=== PATIENT | male | born 1940 | race Caucasian/White ===

== ENCOUNTER 2017-07-19 14:05 | Inpatient (IN) | payer OTHER, MEDICARE ==
[~2017-07-19] VITALS: Ht 190.5 cm; Wt 148.8 kg
[2017-07-19 14:07] VITALS: BP_SYST 173
[2017-07-19] MEDS ORDERED: D5/0.45 NS 1,000 ML IV SCH (16:30)
[2017-07-19 16:31] LABS: BASOPHILS % (AUTO) 0.4 % (0.0-2.0); EOSINOPHILS # (AUTO) 0.1 K/uL (0.0-0.4); EOSINOPHILS % (AUTO) 1.3 % (0.0-4.0); HEMATOCRIT 38.9 % (36-54); HEMOGLOBIN 12.9 g/dL (14.0-18.0); LYMPHOCYTES # (AUTO) 0.7 K/uL (1.0-5.5); LYMPHOCYTES % (AUTO) 9.1 % (20.5-51.5); MEAN CORPUSCULAR HEMOGLOBIN 32 pg (27-31); MEAN CORPUSCULAR HGB CONC 33 % (32-36); MEAN CORPUSCULAR VOLUME 97 fL (79.0-98.0); MONOCYTES # (AUTO) 0.5 K/uL (0.0-1.0); MONOCYTES % (AUTO) 6.4 % (1.7-9.3); NEUTROPHILS # (AUTO) 6.4 K/uL (1.8-7.7); NEUTROPHILS % (AUTO) 82.8 % (40.0-70.0); PLATELET COUNT (AUTO) 186 K/uL (130-430); RED BLOOD CELL COUNT(AUTO) 4.01 MIL/uL (4.2-6.2); RED CELL DISTRIBUTION WIDTH 12.6 % (9.0-15.0); WHITE BLOOD COUNT (AUTO) 7.7 K/uL (4.8-10.8)
[2017-07-19 16:46] LABS: ANION GAP 4 (5-15); CALCIUM 9.3 mg/dL (8.4-11.0); CHLORIDE 109 mmol/L (98-107); CREATININE 1.33 mg/dL (0.55-1.30); GLUCOSE 142 mg/dL (70-99); POTASSIUM 4.7 mmol/L (3.5-5.1); SODIUM SERUM 141 mmol/L (136-145); UREA NITROGEN, BLOOD 27 mg/dL (8-21)
[2017-07-19 16:51] LABS: ALANINE AMINOTRANSFERASE 14 U/L (12-78); ALBUMIN 3.5 g/dL (3.4-4.8); ASPARTATE AMINOTRANSFERASE 20 U/L (10-37); TOTAL BILIRUBIN 0.6 mg/dL (0.0-1.0)
[2017-07-19] MEDS ORDERED: NACL 0.9% 1,000 ML IV ONE (17:00)
[2017-07-19 17:17] LABS: BILIRUBIN,URINE NEGATIVE (NEGATIVE); BLOOD, URINE NEGATIVE (NEGATIVE); CLARITY/URINE CLEAR (CLEAR); COLOR,URINE YELLOW (YELLOW); GLUCOSE,URINE NEGATIVE (NEGATIVE); KETONES,URINE NEGATIVE (NEGATIVE); LEUKOCYTE ESTERASE ,URINE NEGATIVE (NEGATIVE); NITRITE, URINE NEGATIVE (NEGATIVE); PROTEIN URINE NEGATIVE (NEGATIVE); UROBILINOGEN,URINE 0.2 (0.2-1.0)
[2017-07-19] MEDS ORDERED: SUCCINYLCHOLINE CHLORIDE 20 MG/ML(QUELICIN) IVP ONE (17:39)
[2017-07-19] MEDS ORDERED: SEVOFLURANE 15 MIN GAS INH ONE (17:39)
[2017-07-19] MEDS ORDERED: fentaNYL CITRATE/PF 100 MCG/2 ML AMP IVP ONE (17:39)
[2017-07-19] MEDS ORDERED: METOCLOPRAMIDE HCL 10 MG/2 ML VIAL IVP ONE (17:39)
[2017-07-19] MEDS ORDERED: MIDAZOLAM HCL 5 MG/5 ML VIAL IVP ONE (17:39)
[2017-07-19] MEDS ORDERED: D5LR 1,000 ML IV SCH (18:09)
[2017-07-19] MEDS ORDERED: HYDROcodone/ACETAMIN 5-325 MG TAB (NORCO/ VICODIN) PO PRN (18:15)
[2017-07-19] MEDS ORDERED: ACETAMINOPHEN 325 MG TABLET PO PRN (18:15)
[2017-07-19] MEDS ORDERED: DIPHENHYDRAMINE HCL 25 MG CAPSULE PO PRN (18:15)
[2017-07-19 21:51] VITALS: BP_SYST 137
== END 2017-07-19 22:15 | disposition home or self-care (01) | DRG 537 ==
LOC: SED 14:05 → EDBD 14:05 → MERGE 16:06 → SMU 16:06
PROVIDERS: ADMIT Family Medicine; ATTEND Family Medicine
PROC: 0SSBXZZ Reposition Left Hip Joint, External Approach (ICD-10-PCS; principal; 2017-07-19 17:00)
DX: S73.005A Unspecified dislocation of left hip, initial encounter (principal); Z68.41 Body mass index [BMI] 40.0-44.9, adult; E66.01 Morbid (severe) obesity due to excess calories
CPT/HCPCS: 36415; 71010; 73502; 76000; 80053; 81003; 85025; 93005; 96360; 96361; 99285; J0330; J2250; J2765; J3010

== ENCOUNTER 2017-11-03 22:19 | Emergency (ER) | payer OTHER, MEDICARE ==
[~2017-11-03] VITALS: Ht 190.5 cm; Wt 147.4 kg
[2017-11-03 22:28] VITALS: BP_SYST 111
[2017-11-03] MEDS ORDERED: NACL 0.9% 1,000 ML IV ONE (23:35)
[2017-11-03] MEDS ORDERED: DIPHENHYDRAMINE INJ 50 MG/ML VIAL IVP ONE (23:45)
[2017-11-03] MEDS ORDERED: HYDROmorphone 1 MG INJ. 1 MG/ML AMPUL IVP ONE (23:45)
[2017-11-04 00:11] LABS: BASOPHILS # (AUTO) 0.5 K/uL (0.0-0.2); BASOPHILS % (AUTO) 3.8 % (0.0-2.0); EOSINOPHILS # (AUTO) 0.1 K/uL (0.0-0.4); HEMATOCRIT 41.7 % (36-54); HEMOGLOBIN 13.8 g/dL (14.0-18.0); LYMPHOCYTES # (AUTO) 0.7 K/uL (1.0-5.5); LYMPHOCYTES % (AUTO) 5.2 % (20.5-51.5); MEAN CORPUSCULAR HEMOGLOBIN 32 pg (27-31); MEAN CORPUSCULAR HGB CONC 33 % (32-36); MEAN CORPUSCULAR VOLUME 96 fL (79.0-98.0); MONOCYTES % (AUTO) 7.1 % (1.7-9.3); NEUTROPHILS # (AUTO) 11.8 K/uL (1.8-7.7); NEUTROPHILS % (AUTO) 82.9 % (40.0-70.0); PLATELET COUNT (AUTO) 197 K/uL (130-430); RED BLOOD CELL COUNT(AUTO) 4.36 MIL/uL (4.2-6.2); RED CELL DISTRIBUTION WIDTH 12.7 % (9.0-15.0); WHITE BLOOD COUNT (AUTO) 14.1 K/uL (4.8-10.8)
[2017-11-04] MEDS ORDERED: HYDROmorphone 2 MG/ML VIAL ONE (00:12)
[2017-11-04 00:20] LABS: ANION GAP 10 (5-15); CALCIUM 9.2 mg/dL (8.4-11.0); CHLORIDE 97 mmol/L (98-107); CREATININE 2.06 mg/dL (0.55-1.30); GLUCOSE 156 mg/dL (70-99); POTASSIUM 4.7 mmol/L (3.5-5.1); SODIUM SERUM 134 mmol/L (136-145); UREA NITROGEN, BLOOD 29 mg/dL (8-21)
[2017-11-04 01:07] LABS: BILIRUBIN,URINE NEGATIVE (NEGATIVE); BLOOD, URINE 3+ (NEGATIVE); CLARITY/URINE CLEAR (CLEAR); COLOR,URINE YELLOW (YELLOW); GLUCOSE,URINE NEGATIVE (NEGATIVE); KETONES,URINE TRACE (NEGATIVE); LEUKOCYTE ESTERASE ,URINE NEGATIVE (NEGATIVE); NITRITE, URINE NEGATIVE (NEGATIVE); PH,URINE 5.5 (5.0-8.0); PROTEIN URINE NEGATIVE (NEGATIVE); UROBILINOGEN,URINE 0.2 (0.2-1.0)
[2017-11-04 01:08] LABS: BACTERIA,URINE FEW /HPF (None Seen); RBC,URINE >100 /HPF (0-3); WBC,URINE 0-3 /HPF (0-3)
[2017-11-04 01:50] VITALS: BP_SYST 111
== END 2017-11-04 01:50 | disposition home or self-care (01) ==
LOC: SED 22:19
DX: N20.1 Calculus of ureter (principal); K81.9 Cholecystitis, unspecified; E11.9 Type 2 diabetes mellitus without complications; Z91.010 Allergy to peanuts
CPT/HCPCS: 36415; 74176; 80048; 81000; 85025; 96361; 96374; 96375; 99285; J1170; J1200

== ENCOUNTER 2018-05-06 16:10 | Inpatient (IN) | payer OTHER, MEDICARE ==
[~2018-05-06] VITALS: Ht 190.5 cm; Wt 161.0 kg
[2018-05-06 16:22] VITALS: BP_SYST 105
[2018-05-06 17:18] LABS: BASOPHILS % (AUTO) 0.4 % (0.0-2.0); EOSINOPHILS # (AUTO) 0.1 K/uL (0.0-0.4); EOSINOPHILS % (AUTO) 1.7 % (0.0-4.0); HEMATOCRIT 35.1 % (36-54); LYMPHOCYTES # (AUTO) 0.8 K/uL (1.0-5.5); LYMPHOCYTES % (AUTO) 11.1 % (20.5-51.5); MEAN CORPUSCULAR HEMOGLOBIN 33 pg (27-31); MEAN CORPUSCULAR HGB CONC 34 % (32-36); MEAN CORPUSCULAR VOLUME 95 fL (79.0-98.0); MONOCYTES # (AUTO) 0.5 K/uL (0.0-1.0); MONOCYTES % (AUTO) 7.3 % (1.7-9.3); NEUTROPHILS # (AUTO) 5.7 K/uL (1.8-7.7); NEUTROPHILS % (AUTO) 79.5 % (40.0-70.0); PLATELET COUNT (AUTO) 171 K/uL (130-430); RED BLOOD CELL COUNT(AUTO) 3.69 MIL/uL (4.2-6.2); RED CELL DISTRIBUTION WIDTH 14.7 % (9.0-15.0); WHITE BLOOD COUNT (AUTO) 7.1 K/uL (4.8-10.8)
[2018-05-06 17:31] LABS: ANION GAP 9 (5-15); CALCIUM 8.8 mg/dL (8.4-11.0); CHLORIDE 108 mmol/L (98-107); CREATININE 1.44 mg/dL (0.55-1.30); GLUCOSE 230 mg/dL (70-99); POTASSIUM 4.3 mmol/L (3.5-5.1); SODIUM SERUM 142 mmol/L (136-145); UREA NITROGEN, BLOOD 28 mg/dL (8-21)
[2018-05-06 17:36] LABS: ALANINE AMINOTRANSFERASE 14 U/L (12-78); ASPARTATE AMINOTRANSFERASE 14 U/L (10-37); TOTAL BILIRUBIN 0.5 mg/dL (0.0-1.0)
[2018-05-06 17:46] LABS: INR 1.1 (0.80-1.20); PROTHROMBIN TIME 11.2 SECS (9.5-12.5)
[2018-05-06] MEDS ORDERED: NS 500 ML IV ONE (18:00)
[2018-05-06] MEDS ORDERED: VANCOMYCIN HCL 1,000 MG in D5W 250 ML IV ONE (18:15)
[2018-05-06] MEDS ORDERED: PIPERACILLIN/TAZO 3.38 GM in D5W 50 ML IV ONE (18:15)
[2018-05-06] MEDS ORDERED: FOLI-59 PO (18:25)
[2018-05-06] MEDS ORDERED: LIRA0.6P2 SQ (18:25)
[2018-05-06] MEDS ORDERED: GABA-529 PO (18:25)
[2018-05-06] MEDS ORDERED: GLIM4TAB PO (18:25)
[2018-05-06] MEDS ORDERED: PIPERACILLIN/TAZOBACTAM 3.375 GM/VIAL (ZOSYN) IV ONE (18:27)
[2018-05-06] MEDS ORDERED: VANCOMYCIN HCL 1000 MG/VIAL IV ONE (18:27)
[2018-05-06] MEDS ORDERED: INSULIN ASPART 100 UNITS/ML, 10 ML VIAL (NovoLOG) SUBCUT PRN (18:30)
[2018-05-06 19:30] VITALS: BP_SYST 169
[2018-05-06 19:40] VITALS: BP_SYST 143
[2018-05-06] MEDS ORDERED: ZOLPIDEM TARTRATE 5 MG TABLET PO PRN (22:30)
[2018-05-06] MEDS ORDERED: ACETAMINOPHEN 325 MG TABLET PO PRN (22:30)
[2018-05-06] MEDS ORDERED: HYDROcodone/ACETAMIN 5-325 MG TAB (NORCO/ VICODIN) PO PRN (22:30)
[2018-05-06] MEDS ORDERED: HEPARIN SODIUM,PORCINE 5000 UNITS/ML VIAL ONE (22:52)
[2018-05-06] MEDS: NACL 0.9% 1,000 ML IV SCH (22:57)
[2018-05-06] MEDS: HEPARIN SODIUM,PORCINE 5000 UNITS/ML VIAL SUBCUT SCH (22:59)
[2018-05-07 00:30] VITALS: BP_SYST 165
[2018-05-07] MEDS ORDERED: AMPICILLIN SODIUM/SULBACTAM NA 3 GM VIAL ONE (06:20)
[2018-05-07] MEDS: AMPICILLIN SODIUM/SULBACTAM NA 3 GM in NS 100 ML IV SCH ×3 (06:25→21:30)
[2018-05-07 06:59] LABS: BASOPHILS % (AUTO) 0.4 % (0.0-2.0); EOSINOPHILS # (AUTO) 0.3 K/uL (0.0-0.4); EOSINOPHILS % (AUTO) 3.5 % (0.0-4.0); HEMATOCRIT 32.6 % (36-54); LYMPHOCYTES % (AUTO) 13.7 % (20.5-51.5); MEAN CORPUSCULAR HEMOGLOBIN 32 pg (27-31); MEAN CORPUSCULAR HGB CONC 34 % (32-36); MEAN CORPUSCULAR VOLUME 95 fL (79.0-98.0); MONOCYTES # (AUTO) 0.6 K/uL (0.0-1.0); MONOCYTES % (AUTO) 7.9 % (1.7-9.3); NEUTROPHILS # (AUTO) 5.6 K/uL (1.8-7.7); NEUTROPHILS % (AUTO) 74.5 % (40.0-70.0); PLATELET COUNT (AUTO) 159 K/uL (130-430); RED BLOOD CELL COUNT(AUTO) 3.45 MIL/uL (4.2-6.2); WHITE BLOOD COUNT (AUTO) 7.5 K/uL (4.8-10.8)
[2018-05-07 07:25] LABS: ANION GAP 9 (5-15); CALCIUM 8.2 mg/dL (8.4-11.0); CHLORIDE 109 mmol/L (98-107); CREATININE 1.22 mg/dL (0.55-1.30); GLUCOSE 128 mg/dL (70-99); SODIUM SERUM 142 mmol/L (136-145); UREA NITROGEN, BLOOD 24 mg/dL (8-21)
[2018-05-07 08:01] LABS: ALANINE AMINOTRANSFERASE 11 U/L (12-78); ALBUMIN 2.7 g/dL (3.4-4.8); ASPARTATE AMINOTRANSFERASE 16 U/L (10-37); THYROID STIMULATING HORMONE 3.88 uIu/mL (0.36-3.74); TOTAL BILIRUBIN 0.5 mg/dL (0.0-1.0)
[2018-05-07 08:10] VITALS: BP_SYST 149
[2018-05-07] MEDS: FAMOTIDINE 20 MG TABLET PO SCH (09:49)
[2018-05-07] MEDS: GABAPENTIN 100 MG CAPSULE PO SCH (09:49)
[2018-05-07] MEDS: HEPARIN SODIUM,PORCINE 5000 UNITS/ML VIAL SUBCUT SCH ×2 (09:50→20:39)
[2018-05-07] MEDS: NACL 0.9% 1,000 ML IV SCH (09:54)
[2018-05-07] MEDS: INSULIN ASPART 100 UNITS/ML, 10 ML VIAL (NovoLOG) SUBCUT PRN (11:49)
[2018-05-07 12:00] VITALS: BP_SYST 187
[2018-05-07] MEDS ORDERED: FUROSEMIDE 40 MG/4 ML VIAL IVP ONE (12:30)
[2018-05-07 16:00] VITALS: BP_SYST 172
[2018-05-07] MEDS ORDERED: cloNIDine HCL 0.1 MG TABLET PO PRN (17:45)
[2018-05-07 20:00] VITALS: BP_SYST 155
[2018-05-07] MEDS: CARVEDILOL 6.25 MG TABLET (COREG) PO SCH (20:37)
[2018-05-07] MEDS: LINEZOLID 600 MG TABLET PO SCH (20:37)
[2018-05-07] MEDS: GLIMEPIRIDE 2 MG TABLET PO SCH (20:38)
[2018-05-08 00:01] VITALS: BP_SYST 136
[2018-05-08] MEDS: AMPICILLIN SODIUM/SULBACTAM NA 3 GM in NS 100 ML IV SCH ×3 (06:12→21:34)
[2018-05-08 07:03] LABS: ANION GAP 6 (5-15); CALCIUM 8.7 mg/dL (8.4-11.0); CHLORIDE 107 mmol/L (98-107); CREATININE 1.34 mg/dL (0.55-1.30); GLUCOSE 134 mg/dL (70-99); POTASSIUM 5.1 mmol/L (3.5-5.1); SODIUM SERUM 142 mmol/L (136-145); UREA NITROGEN, BLOOD 23 mg/dL (8-21)
[2018-05-08 08:27] VITALS: BP_SYST 148
[2018-05-08] MEDS ORDERED: FUROSEMIDE 40 MG/4 ML VIAL IVP SCH (09:00)
[2018-05-08] MEDS: HEPARIN SODIUM,PORCINE 5000 UNITS/ML VIAL SUBCUT SCH ×2 (09:26→20:39)
[2018-05-08] MEDS: GABAPENTIN 100 MG CAPSULE PO SCH (09:27)
[2018-05-08] MEDS: LINEZOLID 600 MG TABLET PO SCH ×2 (09:27→20:34)
[2018-05-08] MEDS: FAMOTIDINE 20 MG TABLET PO SCH (09:27)
[2018-05-08] MEDS: CARVEDILOL 6.25 MG TABLET (COREG) PO SCH ×2 (09:28→20:34)
[2018-05-08] MEDS: INSULIN ASPART 100 UNITS/ML, 10 ML VIAL (NovoLOG) SUBCUT PRN (11:24)
[2018-05-08 12:16] VITALS: BP_SYST 150
[2018-05-08 16:20] VITALS: BP_SYST 147
[2018-05-08] MEDS: GLIMEPIRIDE 2 MG TABLET PO SCH (20:33)
== END 2018-05-08 22:44 | disposition left against medical advice (07) | DRG 603 ==
LOC: SED 16:10 → SMU 18:16
PROVIDERS: ADMIT Internal Medicine; ATTEND Internal Medicine
DX: L03.115 Cellulitis of right lower limb (principal); Z68.41 Body mass index [BMI] 40.0-44.9, adult; L03.116 Cellulitis of left lower limb; I89.0 Lymphedema, not elsewhere classified; E66.01 Morbid (severe) obesity due to excess calories; Z96.643 Presence of artificial hip joint, bilateral; N18.3 Chronic kidney disease, stage 3 (moderate); E11.22 Type 2 diabetes mellitus with diabetic chronic kidney disease; Z91.010 Allergy to peanuts; Z79.899 Other long term (current) drug therapy; Z79.4 Long term (current) use of insulin
CPT/HCPCS: 36415; 71045; 80048; 80053; 82550-TC; 82962; 83605; 83735-TC; 83880; 84439; 84443-TC; 84484; 85025; 85610-TC; 85730-TC; 87040-TC; 93005; 93970; 96365; 96367; 99285; J0295; J1644; J1815; J1940; J2543; J3370; J7030; J7040

== ENCOUNTER 2022-03-03 21:41 | Emergency (ER) | payer OTHER, MEDICARE ==
[~2022-03-03] VITALS: Ht 190.5 cm; Wt 151.0 kg
[~2022-03-03 21:41] MED LIST: FOLI-59 PO; GABA-529 PO; GLIM4TAB PO; LIRA0.6P2 SQ
[2022-03-03 21:46] VITALS: BP_SYST 141
[2022-03-03] MEDS ORDERED: LIDOCAINE/EPI 1% 1:100000 20 ML VIAL INJ ONE (23:30)
[2022-03-04 00:31] LABS: BASOPHILS # (AUTO) 0.1 K/uL (0.0-0.2); BASOPHILS % (AUTO) 1.5 % (0.0-2.0); EOSINOPHILS # (AUTO) 0.2 K/uL (0.0-0.4); HEMATOCRIT 38.4 % (36-54); HEMOGLOBIN 13.1 g/dL (14.0-18.0); LYMPHOCYTES # (AUTO) 0.8 K/uL (1.0-5.5); LYMPHOCYTES % (AUTO) 8.5 % (20.5-51.5); MEAN CORPUSCULAR HEMOGLOBIN 33 pg (27-31); MEAN CORPUSCULAR HGB CONC 34 % (32-36); MEAN CORPUSCULAR VOLUME 96 fL (79.0-98.0); MONOCYTES # (AUTO) 0.4 K/uL (0.0-1.0); MONOCYTES % (AUTO) 4.4 % (1.7-9.3); NEUTROPHILS # (AUTO) 8.1 K/uL (1.8-7.7); NEUTROPHILS % (AUTO) 83.6 % (40.0-70.0); PLATELET COUNT (AUTO) 189 K/uL (130-430); RED CELL DISTRIBUTION WIDTH 13.5 % (9.0-15.0); WHITE BLOOD COUNT (AUTO) 9.7 K/uL (4.8-10.8)
[2022-03-04 00:45] LABS: ANION GAP 11 (5-15); CALCIUM 8.5 mg/dL (8.4-11.0); CHLORIDE 104 mmol/L (98-107); CREATININE 1.34 mg/dL (0.55-1.30); GLUCOSE 151 mg/dL (70-99); POTASSIUM 4.3 mmol/L (3.5-5.1); SODIUM SERUM 139 mmol/L (136-145); UREA NITROGEN, BLOOD 34 mg/dL (8-21)
[2022-03-04 00:45] LABS: BILIRUBIN,URINE NEGATIVE (NEGATIVE); BLOOD, URINE NEGATIVE (NEGATIVE); CLARITY/URINE CLEAR (CLEAR); COLOR,URINE YELLOW (YELLOW); GLUCOSE,URINE NEGATIVE (NEGATIVE); KETONES,URINE NEGATIVE (NEGATIVE); LEUKOCYTE ESTERASE ,URINE 1+ (NEGATIVE); NITRITE, URINE NEGATIVE (NEGATIVE); PH,URINE 5.5 (5.0-8.0); PROTEIN URINE NEGATIVE (NEGATIVE); UROBILINOGEN,URINE 0.2 (0.2-1.0)
[2022-03-04 00:51] LABS: ALANINE AMINOTRANSFERASE 7 U/L (12-78); ALBUMIN 3.3 g/dL (3.4-4.8); ASPARTATE AMINOTRANSFERASE 12 U/L (10-37); TOTAL BILIRUBIN 0.4 mg/dL (0.0-1.0)
[2022-03-04 01:41] LABS: BACTERIA,URINE None Seen /HPF (None Seen); MUCUS,URINE None Seen /LPF (None Seen); RBC,URINE 0-3 /HPF (0-3); WBC,URINE 0-3 /HPF (0-3)
[2022-03-04] MEDS ORDERED: SULF1TAB48 PO (01:44)
[2022-03-04 04:51] VITALS: BP_SYST 163
== END 2022-03-04 04:51 | disposition home or self-care (01) ==
LOC: SED 21:41
DX: L02.414 Cutaneous abscess of left upper limb (principal); E11.9 Type 2 diabetes mellitus without complications; Z91.010 Allergy to peanuts
CPT/HCPCS: 36415; 80053; 81000; 83605; 85025; 93005; 99284

== ENCOUNTER 2022-05-02 13:53 | Inpatient (IN) | payer OTHER, MEDICARE ==
[~2022-05-02] VITALS: Ht 188 cm; Wt 138.8 kg
[~2022-05-02 13:53] MED LIST changes: +SULF1TAB48 PO
[2022-05-02 14:00] VITALS: BP_SYST 186
--- NOTE | 2022-05-02 17:11 | NUR ---
Placed in room 08 . Placed on manager strategic alliances, blood pressure machine and pulse oximeter. To gown for exam. Side rails up. Report given to [place] Antony
--- NOTE | 2022-05-02 17:12 | NUR ---
ER Dr. Colindres at bedside examining patient.
--- NOTE | 2022-05-02 17:15 | NUR ---
Patient brought in bls complaining of right hip pain s/p unwitnessed fall from home. Patient is Covid positive. Pain 6/10. No other complaints/injuries per patient or as noted.
--- NOTE | 2022-05-02 18:14 | NUR ---
son called for update. informed still awaiting results from radiology.
--- NOTE | 2022-05-02 18:33 | NUR ---
XRAYS BEING DONE AT BEDSIDE.
[2022-05-02] MEDS ORDERED: MORPHINE 4 MG INJ. 4 MG/ML VIAL IM ONE (18:45)
--- NOTE | 2022-05-02 19:08 | NUR ---
report given to Trever for continuation of care.
[2022-05-02 19:53] LABS: BASOPHILS % (AUTO) 0.4 % (0.0-2.0); EOSINOPHILS % (AUTO) 0.2 % (0.0-4.0); HEMATOCRIT 38.1 % (36-54); LYMPHOCYTES # (AUTO) 0.5 K/uL (1.0-5.5); LYMPHOCYTES % (AUTO) 10.8 % (20.5-51.5); MEAN CORPUSCULAR HEMOGLOBIN 33 pg (27-31); MEAN CORPUSCULAR HGB CONC 34 % (32-36); MEAN CORPUSCULAR VOLUME 96 fL (79.0-98.0); MONOCYTES # (AUTO) 0.4 K/uL (0.0-1.0); MONOCYTES % (AUTO) 8.7 % (1.7-9.3); NEUTROPHILS # (AUTO) 3.8 K/uL (1.8-7.7); NEUTROPHILS % (AUTO) 79.9 % (40.0-70.0); PLATELET COUNT (AUTO) 140 K/uL (130-430); RED BLOOD CELL COUNT(AUTO) 3.97 MIL/uL (4.2-6.2); RED CELL DISTRIBUTION WIDTH 13.1 % (9.0-15.0); WHITE BLOOD COUNT (AUTO) 4.8 K/uL (4.8-10.8)
--- NOTE | 2022-05-02 19:54 | NUR ---
Pt in bed 8 at this time with NC@2 L. On monitoring tech and pulse oximetry. Normal skin color for ethnicity. Pt c/o right hip pain with noticeable internal rotation. Palpable pedal pulse bilaterally. No skin discoloration to right leg.Bed in low position. Side rails up.
[2022-05-02] MEDS ORDERED: ONDANSETRON HCL 4 MG/2 ML VIAL IVP PRN (20:00)
[2022-05-02] MEDS ORDERED: MUPIROCIN 2% TOPICAL OINTMENT 22 GM NS PRN (20:00)
[2022-05-02] MEDS ORDERED: DOCUSATE SODIUM 100 MG CAPSULE PO PRN (20:00)
[2022-05-02] MEDS ORDERED: ZOLPIDEM TARTRATE 5 MG TABLET PO PRN (20:00)
[2022-05-02] MEDS ORDERED: LORazepam 2 MG/ML VIAL IVP PRN (20:00)
[2022-05-02] MEDS ORDERED: ACETAMINOPHEN 325 MG TABLET PO PRN (20:00)
[2022-05-02] MEDS ORDERED: MORPHINE 2 MG/ML INJ. SYRINGE IVP PRN (20:00)
[2022-05-02] MEDS ORDERED: ONDANSETRON HCL 4 MG/2 ML VIAL IVP ONE (20:15)
[2022-05-02 20:32] LABS: INR 1.1 (0.80-1.20); PROTHROMBIN TIME 10.9 SECS (9.5-12.5)
--- NOTE | 2022-05-02 20:54 | NUR ---
# 22 gauge angiocath placed to left hand. Use of asceptic technique. Opsite placed over site. Blood return noted. Blood for lab drawn from site. Flushed with 10 cc of normal saline. No evidence of infiltration noted. Patient tolerated well.
--- NOTE | 2022-05-02 20:55 | NUR ---
Jayda swab walked to lab at this time
[2022-05-02 21:22] LABS: ANION GAP 11 (5-15); CALCIUM 8.4 mg/dL (8.4-11.0); CHLORIDE 103 mmol/L (98-107); CREATININE 1.31 mg/dL (0.55-1.30); GLUCOSE 131 mg/dL (70-99); POTASSIUM 3.9 mmol/L (3.5-5.1); SODIUM SERUM 137 mmol/L (136-145); UREA NITROGEN, BLOOD 21 mg/dL (8-21)
[2022-05-02 21:34] LABS: ALANINE AMINOTRANSFERASE 10 U/L (12-78); ALBUMIN 2.9 g/dL (3.4-4.8); ASPARTATE AMINOTRANSFERASE 26 U/L (10-37); TOTAL BILIRUBIN 0.5 mg/dL (0.0-1.0)
[2022-05-02] MEDS: hydrALAZINE HCL 20 MG/ML VIAL IVP PRN (22:10)
[2022-05-03] VITALS (7 sets, daily range): BP systolic 145–180
--- NOTE | 2022-05-03 | NUR ---
ADMISSION NOTES; -Pt arrived from ED dept to Rm 123-B. Admitted as medsurg dx rt hip dislocation s/p fall from home. Positive Covid, places on droplet contact isolation precaution. Pt is confused. Pt is morbid obesity. IV site of rt hand #22 patent, flushed well w/ NS, no s/s any infiltration noted. NPO status. Unable to discuss poc d/t pt is confused and no family is at bedside this time. Right f/a bruise and dry old blood stained scab, left eye with redness and swollen with scant yellow discharge, anterior rt chest dry scab, buttocks redness intact and blanchable, left arm bruise and small skin tear noted. Will order wound care consult and keeps pt cleaned and dry, turned & repositioned and q 2hrs prn. Bed alarmed, side rails x3. Pt is confused and unable to use call light for assistance. All safety measures in place. Cont to monitor pt.
--- NOTE | 2022-05-03 00:30 | NUR ---
Report to [place] Salmeron. Patient is admitted to [facility] under Dr Chacon. Patient transferred to Room 123B
--- NOTE | 2022-05-03 01:30 | NUR ---
NOTES; MADELINE-SON CALLED AND UPDATED HIS FATHER'S CONDITION AND PLAN OF CARE. -Madeline Roberts(son) stated that his dad lives with him and fell x2 ( and ) of this week. Left eye infection on 04/22 and he is on eye drop antibotic. Informed son to bring a list of his home meds, he verbalized that he will bring it in the morning. Addendum: 05/03/22 at 0450 by Lucas Bland RN CORRECTION-SON'S NAME IS CORIE PALMA-WILLA CORREA
--- NOTE | 2022-05-03 01:30 | NUR ---
CORRECTION -------SON'S NAME IS CORIE DEGROOT-WILLA CORREA
[2022-05-03] MEDS: MORPHINE 2 MG/ML INJ. SYRINGE IVP PRN ×2 (01:54→01:57)
--- NOTE | 2022-05-03 01:57 | NUR ---
NOTES; PAIN MGMT PRIOR CHANGED PT AND TAKE PHOTOS OF WOUNDS -Gave Morphine 2mg IVP prior changed pt d/t incontinent of urine and take photos of wounds for admission protocol. Now, pt is cleaned and dry. Turned & repositioned and q 2hrs prn. Call light w/in reach. Bed alarmed, side rails x3. Maintains droplet contact isolation entire time. Cont to monitor pt.
--- NOTE | 2022-05-03 04:10 | NUR ---
ROUNDS; -Pt is asleep. NO s/s any pain,sob,or any acute distress noted. Turned & repositioned and q 2hrs prn. Call light w/in reach. Bed alarmed, side rails x3. Maintains droplet contact isolation entire time. Cont to monitor pt.
[2022-05-03] MEDS: MORPHINE 4 MG INJ. 4 MG/ML VIAL IVP PRN ×3 (06:04→11:50)
--- NOTE | 2022-05-03 06:04 | NUR ---
ROUNDS; pain mgmt -Pt is resting and moaning when checked to see if pt is wet. changed pt and provided perineal care,now pt is cleaned and dry. Turned & repositioned and q 2hrs prn. Call light w/in reach. Bed alarmed, side rails x3. Maintains droplet contact isolation entire time. Cont to monitor pt.
[2022-05-03] MEDS: hydrALAZINE HCL 20 MG/ML VIAL IVP PRN ×3 (06:14→23:09)
--- NOTE | 2022-05-03 06:14 | NUR ---
NOTES;ELEVATED EP=052/111,GAVE APRESOLINE 10MG IVP WILL CONT TO MONITOR PT.
--- NOTE | 2022-05-03 06:31 | NUR ---
CLOSING NOTES; -Multiple time pt removed n/c for oxy, pt is m1bqk=65-83% r/a. No s/s any chest pain or sob,or resp distress noted. -Pt is resting in bed comfortably after Morphine given earlier. IV site of rt hand #22 patent, flushed well w/ NS, no s/s any infiltration noted. All safety measures in place. Pt's condition stable. Maintains droplet contact isolation entire shift. Will endorse to next nurse to cont care.
[2022-05-03 08:16] LABS: BASOPHILS # (AUTO) 0.1 K/uL (0.0-0.2); BASOPHILS % (AUTO) 1.1 % (0.0-2.0); EOSINOPHILS % (AUTO) 0.1 % (0.0-4.0); HEMATOCRIT 40.5 % (36-54); HEMOGLOBIN 13.9 g/dL (14.0-18.0); LYMPHOCYTES # (AUTO) 0.4 K/uL (1.0-5.5); LYMPHOCYTES % (AUTO) 5.1 % (20.5-51.5); MEAN CORPUSCULAR HEMOGLOBIN 33 pg (27-31); MEAN CORPUSCULAR HGB CONC 34 % (32-36); MEAN CORPUSCULAR VOLUME 95 fL (79.0-98.0); MONOCYTES # (AUTO) 0.6 K/uL (0.0-1.0); MONOCYTES % (AUTO) 8.1 % (1.7-9.3); NEUTROPHILS # (AUTO) 6.6 K/uL (1.8-7.7); NEUTROPHILS % (AUTO) 85.6 % (40.0-70.0); PLATELET COUNT (AUTO) 141 K/uL (130-430); RED BLOOD CELL COUNT(AUTO) 4.24 MIL/uL (4.2-6.2); RED CELL DISTRIBUTION WIDTH 13.2 % (9.0-15.0); WHITE BLOOD COUNT (AUTO) 7.7 K/uL (4.8-10.8)
[2022-05-03 08:57] LABS: ANION GAP 16 (5-15); CALCIUM 8.5 mg/dL (8.4-11.0); CHLORIDE 102 mmol/L (98-107); CREATININE 1.28 mg/dL (0.55-1.30); GLUCOSE 172 mg/dL (70-99); SODIUM SERUM 136 mmol/L (136-145); UREA NITROGEN, BLOOD 22 mg/dL (8-21)
--- NOTE | 2022-05-03 13:20 | NUR ---
NOTES: Zafar Menard paged for consult for cardiac clearance. called and gave information but wants pt. nurse to call him back for more information. nurse Slade will be inform.
[2022-05-03] MEDS: GENTAMICIN SULFATE 0.3% Non-Formulary OPHT. 5 ML DROPS OP SCH ×2 (18:29→23:15)
[2022-05-03] MEDS: NEOMYCIN/POLYMYXN B/GRAMICIDIN 10 ML OPHT. DROPS OP SCH ×2 (18:29→23:15)
[2022-05-03] MEDS: TRIAMCINOLONE ACETONIDE 0.025% 15 GM CREAM.GM. TP SCH (21:00)
[2022-05-04 00:45] VITALS: BP_SYST 180
--- NOTE | 2022-05-04 06:14 | NUR ---
pt is hard of hearing, alert x1, very sensitive to any movement, he is incontinence. Pt is also obese and has right eye infection.
[2022-05-04 06:26] LABS: BILIRUBIN,URINE NEGATIVE (NEGATIVE); BLOOD, URINE 2+ (NEGATIVE); CLARITY/URINE CLEAR (CLEAR); COLOR,URINE YELLOW (YELLOW); GLUCOSE,URINE NEGATIVE (NEGATIVE); KETONES,URINE 3+ (NEGATIVE); LEUKOCYTE ESTERASE ,URINE NEGATIVE (NEGATIVE); NITRITE, URINE NEGATIVE (NEGATIVE); PH,URINE 8.5 (5.0-8.0); PROTEIN URINE 2+ (NEGATIVE); UROBILINOGEN,URINE 0.2 (0.2-1.0)
--- NOTE | 2022-05-04 06:53 | NUR ---
RECEIVED CRITICAL LAB AT THIS TIME Keira from Lab called [place] Trujillo picked up phone call Noman unavailable at time of call Critical lab: COVID positive Notified Miguel charge nurse, then found Noman and notified him of result.
[2022-05-04 07:00] VITALS: BP_SYST 172
--- NOTE | 2022-05-04 07:09 | NUR ---
Dr. Carreno returned page and notified of positive rapid Covid test result. Surgery cancelled per Dr. Carreno. Chain Carrier and RN made aware.
[2022-05-04 07:11] LABS: BACTERIA,URINE MANY /HPF (None Seen)
[2022-05-04 07:12] LABS: YEAST,URINE Few /HPF (None Seen)
[2022-05-04] MEDS: GENTAMICIN SULFATE 0.3% Non-Formulary OPHT. 5 ML DROPS OP SCH ×5 (07:12→22:16)
[2022-05-04] MEDS: NEOMYCIN/POLYMYXN B/GRAMICIDIN 10 ML OPHT. DROPS OP SCH ×5 (07:12→22:16)
[2022-05-04 07:13] LABS: MUCUS,URINE 3+ /LPF (None Seen)
--- NOTE | 2022-05-04 07:52 | NUR ---
CONSULTATION PAGED/CALLED Reason for Consultation: [] AMS Person Who was Notified: [] DR Jose Angel VERA/DR WICK Consulting Physician: [] DR Jose Angel VERA/DR WICK Addiction Social Worker Specialty: [] NEURO Ordering Physician: [] DR AMADOR
[2022-05-04 08:00] VITALS: BP_SYST 172
[2022-05-04 08:29] LABS: ANION GAP 17 (5-15); CALCIUM 8.2 mg/dL (8.4-11.0); CHLORIDE 103 mmol/L (98-107); CREATININE 1.59 mg/dL (0.55-1.30); GLUCOSE 198 mg/dL (70-99); SODIUM SERUM 138 mmol/L (136-145); UREA NITROGEN, BLOOD 29 mg/dL (8-21)
[2022-05-04 08:38] LABS: BASOPHILS % (AUTO) 0.3 % (0.0-2.0); HEMATOCRIT 43.3 % (36-54); HEMOGLOBIN 14.5 g/dL (14.0-18.0); LYMPHOCYTES # (AUTO) 0.5 K/uL (1.0-5.5); LYMPHOCYTES % (AUTO) 3.8 % (20.5-51.5); MEAN CORPUSCULAR HEMOGLOBIN 32 pg (27-31); MEAN CORPUSCULAR HGB CONC 34 % (32-36); MEAN CORPUSCULAR VOLUME 96 fL (79.0-98.0); MONOCYTES # (AUTO) 0.8 K/uL (0.0-1.0); MONOCYTES % (AUTO) 6.2 % (1.7-9.3); NEUTROPHILS # (AUTO) 12.2 K/uL (1.8-7.7); NEUTROPHILS % (AUTO) 89.7 % (40.0-70.0); PLATELET COUNT (AUTO) 173 K/uL (130-430); RED BLOOD CELL COUNT(AUTO) 4.53 MIL/uL (4.2-6.2); RED CELL DISTRIBUTION WIDTH 13.6 % (9.0-15.0); WHITE BLOOD COUNT (AUTO) 13.5 K/uL (4.8-10.8)
[2022-05-04] MEDS: hydrALAZINE HCL 20 MG/ML VIAL IVP PRN (10:22)
[2022-05-04] MEDS: TRIAMCINOLONE ACETONIDE 0.025% 15 GM CREAM.GM. TP SCH ×2 (10:24→22:16)
[2022-05-04] MEDS ORDERED: amLODIPine BESYLATE 5 MG TABLET PO ONE (10:30)
[2022-05-04 12:00] VITALS: BP_SYST 109
[2022-05-04] MEDS: NACL 0.9% 1,000 ML IV SCH ×2 (13:25→20:30)
[2022-05-04 16:00] VITALS: BP_SYST 142
--- NOTE | 2022-05-04 18:02 | NUR ---
Patient gets combative with staff especially when repositioning/turning. Patient does not like eye drops to be put on his left eye--patient tries to cover his left eye with his hands. Attempt to explain the importance of getting eye drops for his left eye infection--patient refusing. Patient does not want to eat dinner despite being fed. will cont to monitor patient
--- NOTE | 2022-05-04 19:21 | NUR ---
END OF SHIFT REPORT GIVEN TO [place] RODRIGUEZ. THANK YOU
[2022-05-04 20:00] VITALS: BP_SYST 142
[2022-05-05] MEDS: hydrALAZINE HCL 20 MG/ML VIAL IVP PRN (02:35)
[2022-05-05] MEDS: NACL 0.9% 1,000 ML IV SCH (06:30)
[2022-05-05 06:57] LABS: BASOPHILS % (AUTO) 0.3 % (0.0-2.0); EOSINOPHILS % (AUTO) 0.4 % (0.0-4.0); HEMOGLOBIN 13.5 g/dL (14.0-18.0); LYMPHOCYTES # (AUTO) 0.5 K/uL (1.0-5.5); LYMPHOCYTES % (AUTO) 4.5 % (20.5-51.5); MEAN CORPUSCULAR HEMOGLOBIN 32 pg (27-31); MEAN CORPUSCULAR HGB CONC 34 % (32-36); MEAN CORPUSCULAR VOLUME 96 fL (79.0-98.0); MONOCYTES # (AUTO) 0.8 K/uL (0.0-1.0); MONOCYTES % (AUTO) 7.4 % (1.7-9.3); NEUTROPHILS # (AUTO) 9.6 K/uL (1.8-7.7); NEUTROPHILS % (AUTO) 87.4 % (40.0-70.0); PLATELET COUNT (AUTO) 149 K/uL (130-430); RED BLOOD CELL COUNT(AUTO) 4.19 MIL/uL (4.2-6.2); RED CELL DISTRIBUTION WIDTH 14.2 % (9.0-15.0)
[2022-05-05 07:00] VITALS: BP_SYST 153
[2022-05-05] MEDS: NEOMYCIN/POLYMYXN B/GRAMICIDIN 10 ML OPHT. DROPS OP SCH ×5 (07:11→21:21)
[2022-05-05] MEDS: GENTAMICIN SULFATE 0.3% Non-Formulary OPHT. 5 ML DROPS OP SCH ×5 (07:11→21:21)
[2022-05-05 07:53] LABS: ANION GAP 16 (5-15); CALCIUM 8.3 mg/dL (8.4-11.0); CHLORIDE 113 mmol/L (98-107); CREATININE 1.39 mg/dL (0.55-1.30); GLUCOSE 211 mg/dL (70-99); POTASSIUM 3.9 mmol/L (3.5-5.1); SODIUM SERUM 148 mmol/L (136-145); UREA NITROGEN, BLOOD 32 mg/dL (8-21)
[2022-05-05 08:00] VITALS: BP_SYST 153
[2022-05-05] MEDS ORDERED: amLODIPine BESYLATE 5 MG TABLET PO SCH (09:00)
[2022-05-05] MEDS: amLODIPine BESYLATE 5 MG TABLET PO SCH (09:14)
[2022-05-05] MEDS: TRIAMCINOLONE ACETONIDE 0.025% 15 GM CREAM.GM. TP SCH ×2 (09:15→21:21)
--- NOTE | 2022-05-05 11:19 | NUR ---
Dietitian Recommendations - continue cardiac diet or consider liberalizing diet to promote PO intake - consider providing Ensure Enlive BID to supplement diet Please refer to nutrition assessment for details. LORNA BELLA
[2022-05-05 11:47] VITALS: BP_SYST 157
[2022-05-05 12:05] VITALS: BP_SYST 157
[2022-05-05] MEDS: 0.45% NACL 1,000 ML IV SCH (15:20)
[2022-05-05] MEDS: MORPHINE 2 MG/ML INJ. SYRINGE IVP PRN (15:20)
[2022-05-05 16:00] VITALS: BP_SYST 134
--- NOTE | 2022-05-05 19:08 | NUR ---
END OF SHIFT REPORT GIVEN TO [place] KWOK. THANK YOU
--- NOTE | 2022-05-05 19:30 | NUR ---
Opening note Received report from day shift. Pt is calm and awake resting in bed, eyes open. Breathing even and unlabored on RA. IV site intact and patent with fluids running at ordered rate. Fall and safety precautions in place with bed in lowest position, bed alarm on, and call light within reach.
[2022-05-05 20:00] VITALS: BP_SYST 117
[2022-05-06] VITALS: BP_SYST 143
--- NOTE | 2022-05-06 00:15 | NUR ---
Rounds Pt awake lying in bed, eyes open. Breathing even and unlabored. No s/s of acute distress. Fall and safety checks in place
[2022-05-06] MEDS: 0.45% NACL 1,000 ML IV SCH ×2 (02:43→15:10)
[2022-05-06] MEDS: MORPHINE 2 MG/ML INJ. SYRINGE IVP PRN (02:51)
[2022-05-06] MEDS: MORPHINE 4 MG INJ. 4 MG/ML VIAL IVP PRN ×3 (06:03→22:10)
[2022-05-06] MEDS: GENTAMICIN SULFATE 0.3% Non-Formulary OPHT. 5 ML DROPS OP SCH ×5 (06:03→22:01)
[2022-05-06] MEDS: NEOMYCIN/POLYMYXN B/GRAMICIDIN 10 ML OPHT. DROPS OP SCH ×5 (06:03→22:01)
--- NOTE | 2022-05-06 07:05 | NUR ---
Closing note Pt awake in bed. Breathing even and unlabored. No s/s of respiratory distress. IV site intact and patent with fluids running at ordered rate. Fall and safety precautions in place with bed in lowest position, bed alarm on, and call light within reach. All needs met throughout shift
--- NOTE | 2022-05-06 07:55 | NUR ---
RECEIVED PATIENT FROM PM NURSE, RESTING COMFORTABLY IN BED, NO S/SX OF DISTRESS OR DISCOMFORT OBSERVED, WILL ASSUME ALL CARE OF PATIENT
[2022-05-06] MEDS: amLODIPine BESYLATE 5 MG TABLET PO SCH (09:40)
[2022-05-06] MEDS: TRIAMCINOLONE ACETONIDE 0.025% 15 GM CREAM.GM. TP SCH ×2 (09:41→22:01)
[2022-05-06] MEDS: MUPIROCIN 2% TOPICAL OINTMENT 22 GM TP SCH ×2 (09:41→22:00)
--- NOTE | 2022-05-06 11:00 | NUR ---
PATIENT C/O 05/15 PAIN IN HIP, 4MG IV MORPHINE ADMINISTERED PER EMAR
[2022-05-06 12:00] VITALS: BP_SYST 140
[2022-05-06 15:00] VITALS: BP_SYST 132
[2022-05-06 20:00] VITALS: BP_SYST 138; BP_SYST 148
[2022-05-07] VITALS: BP_SYST 136
[2022-05-07 04:00] VITALS: BP_SYST 140
[2022-05-07] MEDS: 0.45% NACL 1,000 ML IV SCH ×2 (04:00→18:37)
[2022-05-07] MEDS: NEOMYCIN/POLYMYXN B/GRAMICIDIN 10 ML OPHT. DROPS OP SCH ×4 (06:26→21:03)
[2022-05-07] MEDS: GENTAMICIN SULFATE 0.3% Non-Formulary OPHT. 5 ML DROPS OP SCH ×4 (06:26→21:03)
[2022-05-07 07:05] LABS: BASOPHILS % (AUTO) 0.4 % (0.0-2.0); EOSINOPHILS # (AUTO) 0.3 K/uL (0.0-0.4); EOSINOPHILS % (AUTO) 3.2 % (0.0-4.0); HEMATOCRIT 36.6 % (36-54); HEMOGLOBIN 12.6 g/dL (14.0-18.0); LYMPHOCYTES # (AUTO) 0.5 K/uL (1.0-5.5); MEAN CORPUSCULAR HEMOGLOBIN 33 pg (27-31); MEAN CORPUSCULAR HGB CONC 34 % (32-36); MEAN CORPUSCULAR VOLUME 95 fL (79.0-98.0); MONOCYTES # (AUTO) 0.7 K/uL (0.0-1.0); MONOCYTES % (AUTO) 8.4 % (1.7-9.3); NEUTROPHILS # (AUTO) 6.7 K/uL (1.8-7.7); PLATELET COUNT (AUTO) 173 K/uL (130-430); RED BLOOD CELL COUNT(AUTO) 3.83 MIL/uL (4.2-6.2); RED CELL DISTRIBUTION WIDTH 13.6 % (9.0-15.0); WHITE BLOOD COUNT (AUTO) 8.2 K/uL (4.8-10.8)
--- NOTE | 2022-05-07 07:30 | NUR ---
OPENING NOTES: 0730AM: PATIENT IS RESTING IN BED QUIETLY. A/A/0x3 PERSON, PLACE, AND EVENT W/ EPISODE OF FORGETFULNESS. ABLE TO MAKE NEEDS KNOWN.. EXPLAINED POC TO PATIENT AND HE VERBALIZED UNDERSTANDING. NO DISTRESS OR PAIN NOTED AT THIS TIME. CALL LIGHT WITH REACH. STABLE CONDITION AT THIS TIME.
[2022-05-07 07:38] LABS: ANION GAP 10 (5-15); CALCIUM 8.3 mg/dL (8.4-11.0); CHLORIDE 111 mmol/L (98-107); CREATININE 1.42 mg/dL (0.55-1.30); GLUCOSE 266 mg/dL (70-99); POTASSIUM 3.9 mmol/L (3.5-5.1); SODIUM SERUM 146 mmol/L (136-145); UREA NITROGEN, BLOOD 36 mg/dL (8-21)
[2022-05-07 08:00] VITALS: BP_SYST 142
[2022-05-07] MEDS: amLODIPine BESYLATE 5 MG TABLET PO SCH (10:35)
[2022-05-07] MEDS: TRIAMCINOLONE ACETONIDE 0.025% 15 GM CREAM.GM. TP SCH ×2 (10:35→20:26)
[2022-05-07] MEDS: HYDROcodone/ACETAMIN 5-325 MG TAB (NORCO/ VICODIN) PO PRN (10:38)
[2022-05-07] MEDS: MUPIROCIN 2% TOPICAL OINTMENT 22 GM TP SCH ×2 (11:29→20:26)
[2022-05-07 16:00] VITALS: BP_SYST 154
--- NOTE | 2022-05-07 18:45 | NUR ---
CLOSING NOTES: PATIENT IS RESTING IN BED QUIETLY, WATCHING TV. NESS. NO DISTRESS OR PAIN NOTED AT THIS TIME. CALL LIGHT WITH REACH. STABLE CONDITION AT THIS TIME. ALL NEEDS MET.
[2022-05-07 20:00] VITALS: BP_SYST 145
[2022-05-07 21:36] VITALS: BP_SYST 145
[2022-05-08] VITALS: BP_SYST 148
[2022-05-08] MEDS: MORPHINE 4 MG INJ. 4 MG/ML VIAL IVP PRN ×4 (00:05→18:26)
[2022-05-08 04:00] VITALS: BP_SYST 146
[2022-05-08] MEDS: GENTAMICIN SULFATE 0.3% Non-Formulary OPHT. 5 ML DROPS OP SCH ×5 (06:00→22:38)
[2022-05-08] MEDS: NEOMYCIN/POLYMYXN B/GRAMICIDIN 10 ML OPHT. DROPS OP SCH ×5 (06:00→22:39)
[2022-05-08] MEDS: 0.45% NACL 1,000 ML IV SCH ×2 (06:00→13:12)
--- NOTE | 2022-05-08 07:30 | NUR ---
OPENING NOTES: PATIENT IS RESTING IN BED QUIETLY. A/A/0x3 PERSON, PLACE, AND EVENT W/ EPISODE OF FORGETFULNESS. ABLE TO MAKE NEEDS KNOWN.. EXPLAINED POC TO PATIENT AND HE VERBALIZED UNDERSTANDING. NO DISTRESS OR PAIN NOTED AT THIS TIME. CALL LIGHT AND PERSONAL ITEMS WITHIN REACH. STABLE CONDITION AT THIS TIME.
[2022-05-08 07:58] LABS: BASOPHILS % (AUTO) 0.3 % (0.0-2.0); EOSINOPHILS # (AUTO) 0.5 K/uL (0.0-0.4); EOSINOPHILS % (AUTO) 5.8 % (0.0-4.0); HEMATOCRIT 35.6 % (36-54); LYMPHOCYTES # (AUTO) 0.7 K/uL (1.0-5.5); LYMPHOCYTES % (AUTO) 8.8 % (20.5-51.5); MEAN CORPUSCULAR HEMOGLOBIN 32 pg (27-31); MEAN CORPUSCULAR HGB CONC 34 % (32-36); MEAN CORPUSCULAR VOLUME 95 fL (79.0-98.0); MONOCYTES # (AUTO) 0.8 K/uL (0.0-1.0); MONOCYTES % (AUTO) 9.8 % (1.7-9.3); NEUTROPHILS # (AUTO) 6.1 K/uL (1.8-7.7); NEUTROPHILS % (AUTO) 75.3 % (40.0-70.0); PLATELET COUNT (AUTO) 170 K/uL (130-430); RED BLOOD CELL COUNT(AUTO) 3.74 MIL/uL (4.2-6.2); RED CELL DISTRIBUTION WIDTH 13.5 % (9.0-15.0); WHITE BLOOD COUNT (AUTO) 8.2 K/uL (4.8-10.8)
[2022-05-08 08:34] LABS: ANION GAP 9 (5-15); CHLORIDE 110 mmol/L (98-107); CREATININE 1.31 mg/dL (0.55-1.30); GLUCOSE 299 mg/dL (70-99); POTASSIUM 3.9 mmol/L (3.5-5.1); SODIUM SERUM 143 mmol/L (136-145); UREA NITROGEN, BLOOD 33 mg/dL (8-21)
[2022-05-08 08:49] VITALS: BP_SYST 181
[2022-05-08] MEDS: amLODIPine BESYLATE 5 MG TABLET PO SCH (08:56)
[2022-05-08] MEDS: HYDROcodone/ACETAMIN 5-325 MG TAB (NORCO/ VICODIN) PO PRN ×3 (08:56→20:52)
[2022-05-08] MEDS: TRIAMCINOLONE ACETONIDE 0.025% 15 GM CREAM.GM. TP SCH ×2 (08:57→20:52)
[2022-05-08] MEDS: MUPIROCIN 2% TOPICAL OINTMENT 22 GM TP SCH ×2 (08:57→20:53)
[2022-05-08 10:09] VITALS: BP_SYST 140
--- NOTE | 2022-05-08 12:43 | NUR ---
CONSULT FOR DR CARDENAS: SPOKE WITH DR. CARDENAS OVER THE PHONE REGARDING CONSULT. MD WILL BE HERE TONIGHT TO SEE THE PATIENT. PATIENT WILL BE NPO AFTER MIDNIGHT DUE TO SURGERY IN AM 05/09/22.
--- NOTE | 2022-05-08 13:15 | NUR ---
R NECK SWOLLEN: PATIENT C/O RIGHT NECK PAIN. NOTED RED, SWOLLEN NODULE. IT IS WARM AND TENDER TO TOUCH. SPOKE WITH DR. DU AND WILL ORDER U/S AND ABT.
[2022-05-08] MEDS: ceFAZolin SODIUM 1 GM in D5W 50 ML IV SCH ×2 (18:23→22:38)
[2022-05-08 18:28] VITALS: BP_SYST 124
--- NOTE | 2022-05-08 19:50 | NUR ---
CLOSING NOTES: PATIENT IS RESTING IN BED QUIETLY, WATCHING TV. NO DISTRESS OR PAIN NOTED AT THIS TIME. CALL LIGHT WITH REACH. STABLE CONDITION AT THIS TIME. ALL NEEDS MET.
[2022-05-08 20:42] VITALS: BP_SYST 172
[2022-05-08] MEDS: hydrALAZINE HCL 20 MG/ML VIAL IVP PRN (20:50)
[2022-05-09] MEDS: MORPHINE 4 MG INJ. 4 MG/ML VIAL IVP PRN ×5 (00:41→21:59)
[2022-05-09 00:50] VITALS: BP_SYST 179
[2022-05-09 04:00] VITALS: BP_SYST 156
[2022-05-09] MEDS: ceFAZolin SODIUM 1 GM in D5W 50 ML IV SCH ×3 (05:48→21:24)
[2022-05-09] MEDS: NEOMYCIN/POLYMYXN B/GRAMICIDIN 10 ML OPHT. DROPS OP SCH ×5 (05:49→21:25)
[2022-05-09] MEDS: GENTAMICIN SULFATE 0.3% Non-Formulary OPHT. 5 ML DROPS OP SCH ×5 (05:49→21:25)
[2022-05-09] MEDS: 0.45% NACL 1,000 ML IV SCH ×2 (05:49→21:24)
--- NOTE | 2022-05-09 07:28 | NUR ---
Ortho Md Dr Hall was called, re: to inform that pt is still Covid positive.
[2022-05-09 07:30] LABS: BASOPHILS % (AUTO) 0.2 % (0.0-2.0); EOSINOPHILS # (AUTO) 0.1 K/uL (0.0-0.4); EOSINOPHILS % (AUTO) 0.7 % (0.0-4.0); HEMATOCRIT 37.6 % (36-54); HEMOGLOBIN 12.8 g/dL (14.0-18.0); LYMPHOCYTES # (AUTO) 0.4 K/uL (1.0-5.5); LYMPHOCYTES % (AUTO) 2.6 % (20.5-51.5); MEAN CORPUSCULAR HEMOGLOBIN 33 pg (27-31); MEAN CORPUSCULAR HGB CONC 34 % (32-36); MEAN CORPUSCULAR VOLUME 97 fL (79.0-98.0); MONOCYTES # (AUTO) 1.4 K/uL (0.0-1.0); MONOCYTES % (AUTO) 8.5 % (1.7-9.3); NEUTROPHILS # (AUTO) 14.5 K/uL (1.8-7.7); PLATELET COUNT (AUTO) 190 K/uL (130-430); RED BLOOD CELL COUNT(AUTO) 3.89 MIL/uL (4.2-6.2); RED CELL DISTRIBUTION WIDTH 13.8 % (9.0-15.0); WHITE BLOOD COUNT (AUTO) 16.4 K/uL (4.8-10.8)
--- NOTE | 2022-05-09 07:30 | NUR ---
OPENING NOTES: PATIENT IS RESTING IN BED QUIETLY. A/A/0x3 PERSON, PLACE, AND EVENT W/ EPISODE OF FORGETFULNESS. ABLE TO MAKE NEEDS KNOWN.. EXPLAINED POC TO PATIENT AND HE VERBALIZED UNDERSTANDING. NPO AT THIS TIME DUE TO POSSIBLE ORIF AT [address] CARDENAS. NO DISTRESS OR PAIN NOTED AT THIS TIME. CALL LIGHT AND PERSONAL ITEMS WITHIN REACH. STABLE CONDITION AT THIS TIME.
[2022-05-09 07:42] LABS: ANION GAP 12 (5-15); CALCIUM 8.2 mg/dL (8.4-11.0); CHLORIDE 106 mmol/L (98-107); CREATININE 1.49 mg/dL (0.55-1.30); SODIUM SERUM 142 mmol/L (136-145); UREA NITROGEN, BLOOD 33 mg/dL (8-21)
[2022-05-09 08:10] VITALS: BP_SYST 109
[2022-05-09] MEDS: amLODIPine BESYLATE 5 MG TABLET PO SCH (08:12)
[2022-05-09] MEDS: HYDROcodone/ACETAMIN 5-325 MG TAB (NORCO/ VICODIN) PO PRN (08:12)
[2022-05-09 08:48] LABS: GLUCOSE 409 mg/dL (70-99)
[2022-05-09] MEDS: TRIAMCINOLONE ACETONIDE 0.025% 15 GM CREAM.GM. TP SCH ×2 (08:48→21:25)
[2022-05-09] MEDS: MUPIROCIN 2% TOPICAL OINTMENT 22 GM TP SCH ×2 (08:48→21:25)
--- NOTE | 2022-05-09 10:49 | NUR ---
CONSULTATION PAGED/CALLED Reason for Consultation: []infection Person Who was Notified: []Marta Consulting Physician: [] Riya Fink Underground Production Foreperson Specialty: []infectious Ordering Physician: []Dr. Chacon
--- NOTE | 2022-05-09 11:57 | NUR ---
CALLED DR CARDENAS: CALLED DR CARDENAS REGARDING PATIENT POSITIVE FOR COVID AND IF PATIENT WILL BE HAVING SURGERY TODAY. NO ANSWERS. WILL CALL BACK LATER.
[2022-05-09 12:00] VITALS: BP_SYST 130
--- NOTE | 2022-05-09 12:04 | NUR ---
OR: CALLED OR IF PATIENT WAS ON SCHEDULE FOR SURGERY. PER OR STAFF, NO SURGERY TODAY/NOT ON THE LIST DUE TO DR CARDENAS IS IN SUSPENSION. ALSO, PATIENT IS STILL COVID POSITIVE. WILL TRY TO CALL DR CARDENAS AGAIN.
--- NOTE | 2022-05-09 12:45 | NUR ---
FC INSERTED: F/C INSERTION USING 16 FR. NOTED 500CC DARK DM URINE DRAINING TO GRAVITY. WILL RECHECK FOR MORE OUTPUT.
[2022-05-09] MEDS: INSULIN REGULAR, HUMAN 100 UNITS/ML, 10 ML VIAL (humuLIN R) SUBCUT PRN ×3 (14:24→21:37)
--- NOTE | 2022-05-09 14:30 | NUR ---
URINE OUTPUT: NOTED ADDITIONAL 1500ML OF URINE OUTPUT. TOTAL OF 2000ML SINCE INSERTION OF THE ERVIN. NOTED DARK DM URINE MIX WITH DARK RED BLOOD. WILL CONT TO MONITOR FOR BLEEDING IN THE F/C.
--- NOTE | 2022-05-09 14:45 | NUR ---
CHG BATH: PERFORMED CHG BATH AND RAHUL CARE.
--- NOTE | 2022-05-09 15:00 | NUR ---
URINE OUTPUT: NO CLOT NOTED IN THE ERVIN AT THIS TIME. NOTED DARK RED BLOOD IN THE F/C DRAIN TUBE. NOT ENOUGH URINE OUTPUT YET IN THE F/C BAG. WILL REASSESS AGAIN LATER.
--- NOTE | 2022-05-09 15:30 | NUR ---
NEW IV IV TO THE LFA LEAKING. IV CATH REMOVED AND INTACT. NO BLEEDING NOTED. COVER SITE WITH GAUZE AND TAPE. NEW IV INSERTED TO THE L HAND 20G WITH GOOD BLOOD RETURN. SECURE WITH TAPE AND COVER WITH TEGADERM
[2022-05-09 15:34] VITALS: BP_SYST 139
[2022-05-09 16:46] LABS: INR 1.2 (0.80-1.20); PROTHROMBIN TIME 12.3 SECS (9.5-12.5)
--- NOTE | 2022-05-09 17:05 | NUR ---
SURGERY CANCEL: SURGERY CANCEL TODAY BY ANESTHEOLOGIST DUE TO BLOOD SUGAR IS HIGH (BS 306). BS NEEDS TO BE CONTROL PRIOR TO SURGERY. CALLED DR CARDENAS X2. NO ANSWERS. WILL TRY AGAIN LATER.
--- NOTE | 2022-05-09 17:30 | NUR ---
SURGERY CANCELLED: SPOKE WITH DR DU ON THE PHONE AND MADE HER AWARE THAT SURGERY IS CANCEL TODAY DUE TO UNCONTROL BS. NEW DIET ORDER. NPO AFTER MIDNIGHT. POSSIBLE SURGERY IN AM. PATIENT IS ALREADY MADE AWARE.
--- NOTE | 2022-05-09 17:45 | NUR ---
PATIENT'S SON CORIE IS AWARE OF SURGERY BEING CANCELLED TODAY. POSSIBLE SURGERY IN AM.
--- NOTE | 2022-05-09 18:36 | NUR ---
CLOSING NOTES: PATIENT IS RESTING IN BED QUIETLY, WATCHING TV. F/C DRAINING TO GRAVITY NOTED DM URINE MIXED WITH DARK RED BLOOD. NO CLOTS NOTED AT THIS TIME. WILL CONT TO MONITOR AND REASSESS. STABLE CONDITION AT THIS TIME. ALL NEEDS MET.
[2022-05-09 20:00] VITALS: BP_SYST 129
--- NOTE | 2022-05-09 20:00 | NUR ---
PM ASSESSMENT; -Pt is a/ox3, resting in bed comfortably. Pt is morbid obesity. IV site of left arm patent, flushed well w/ NS, no s/s any infiltration noted. NPO status after midnight. Sal cath with gravity with scant clotted, irrigating the Sal cath w/ sterile water, was able to declot the tubing of Sal, cont to monitor, pt tolerated well. Right f/a bruise and dry old blood stained scab, left eye with redness and swollen with scant yellow discharge, anterior rt chest dry scab, buttocks redness intact and blanchable, left arm bruise and small skin tear noted. Turned & repositioned and q 2hrs prn. Bed alarmed, side rails x3. Discussed poc,all safety measures, and to use call light for assistance, pt verbalized understanding. Fall precaution in place. Maintains droplet contact entire shift. Side rails x3. All safety measures in place. Cont to monitor pt.
--- NOTE | 2022-05-09 21:59 | NUR ---
Pain mgmt -pt is c/o rt hip pain gave Morphine 4mg IVP for pain mgmt. Sal cath w/ gravity drains some scant blood clot, irrigated with sterile water and now it is drains yellow urine output. Will reassess pain level w/in 30 mins. Bed alarmed, side rails x3, Call light w/in reach. Cont to monitor pt.
--- NOTE | 2022-05-09 22:29 | NUR ---
ROUNDS; -Pt is resting in bed comfortably. pt denies any chest pain,pain,sob, or any acute distress. IV site patent,no s/s any infiltration drsg cdi. IVF infusing well. Maintain droplet & contact isolation for Covid positive. Fall precaution in place. Call light w/in reach. Cont to monitor pt.
--- NOTE | 2022-05-10 00:31 | NUR ---
NPO STATUS INITIALED -Removed all food and fluid away from pt after explaining that he will have ORIF surgery by Dr. Hall tomorrow, unknown scheduled time. Call light w/in reach, side rails x3. All safety measures in place. Still maintaining droplet contact isolation. Cont to monitor pt.
[2022-05-10 01:02] VITALS: BP_SYST 132
--- NOTE | 2022-05-10 02:21 | NUR ---
ROUNDS; -Pt is asleep, no s/s any chest pain,pain,sob, or any acute distress noted. Maintain droplet & contact isolation for Covid positive. Fall precaution in place. Call light w/in reach. Cont to monitor pt.
[2022-05-10] MEDS: MORPHINE 4 MG INJ. 4 MG/ML VIAL IVP PRN (05:18)
[2022-05-10] MEDS: ceFAZolin SODIUM 1 GM in D5W 50 ML IV SCH ×3 (05:18→22:53)
[2022-05-10] MEDS: GENTAMICIN SULFATE 0.3% Non-Formulary OPHT. 5 ML DROPS OP SCH ×5 (05:19→21:00)
[2022-05-10] MEDS: NEOMYCIN/POLYMYXN B/GRAMICIDIN 10 ML OPHT. DROPS OP SCH ×5 (05:19→22:15)
[2022-05-10] MEDS: 0.45% NACL 1,000 ML IV SCH ×2 (05:19→20:00)
--- NOTE | 2022-05-10 06:31 | NUR ---
NOTES; PAGED DR. DU,H, NO ANSWER LEFT MESSAGE AND NUMBER TO CALLBACK REGARDING ERVIN CATH OUTPUT IS 100ML WITH DARK CLOTTED URINE (TOTAL) ENTIRE SHIFT. IRRIGATED X3 WITH STERILE NS ENTIRE SHIFT. BLADDER SCAN SHOWS 999ML OF RESIDUAL. PT STATED THAT HE HAS BPH. SPOKE WITH [facility] REGARDING RT ORIF SX TODAY, SHE STATED THAT SHE SPOKE WITH OR NURSE AND NURSE SAID THAT HE WILL HAVE ORIF SX TODAY BUT UNKNOWN SCHEDULED TIME. YL=783. -CHG PROVIDED, DARRYL CROSS NOTED. WAITING FOR MD TO CALL BACK.
--- NOTE | 2022-05-10 06:32 | NUR ---
NOTES; BS WAS 276,NO INSULIN GIVEN BC STILL WAITING FOR MD TO CALLBACK REGARDING IF NEED TO GIVEN INSULIN SS COVERAGE, RESIDUAL 999ML FROM A BLADDER SCAN, 100ML TOTAL WITH SMALL CLOT FROM ERVIN AND UNSCHEDULED TIME FOR RT ORIF TODAY.
--- NOTE | 2022-05-10 07:50 | NUR ---
CLOSING NOTES; -Pt is laying in bed. No s/s any acute distress noted. IV site of left arm patent, flushed well w/ NS, no s/s any infiltration noted. NPO status after midnight. Sal cath with gravity with red blood clotted, attempting to declot the Sal by irrigating the Sal cath w/ sterile water, was able to declot the tubing of Sal, now Sal is clear with pink blood with scant drainage noted. Fall precaution in place. Maintains droplet contact entire shift. Side rails x3. All safety measures in place. Endorsed to Long to cont care.
--- NOTE | 2022-05-10 07:51 | NUR ---
NOTES; 2ND PAGED,NO ANSWER, LEFT MESSAGE FOR MD TO CALLBACK. ENDORSED TO [facility]-[place] TO FOLLOW UP.
[2022-05-10 08:04] VITALS: BP_SYST 150
--- NOTE | 2022-05-10 08:07 | NUR ---
0730 Pt. in bed, grimacing noted, quezada catheter not draining properly aeb little urine in bag color of drk. red. Flushed with little improvement, manipulation of tubing noted some change in flow of urine. Noc shift nurse has paged twice regarding this concern with no call back. Will attempt call to MD .
[2022-05-10 08:31] LABS: BASOPHILS # (AUTO) 0.1 K/uL (0.0-0.2); BASOPHILS % (AUTO) 0.6 % (0.0-2.0); EOSINOPHILS # (AUTO) 0.2 K/uL (0.0-0.4); EOSINOPHILS % (AUTO) 1.5 % (0.0-4.0); HEMOGLOBIN 11.6 g/dL (14.0-18.0); LYMPHOCYTES # (AUTO) 0.6 K/uL (1.0-5.5); LYMPHOCYTES % (AUTO) 3.5 % (20.5-51.5); MEAN CORPUSCULAR HEMOGLOBIN 32 pg (27-31); MEAN CORPUSCULAR HGB CONC 34 % (32-36); MEAN CORPUSCULAR VOLUME 95 fL (79.0-98.0); MONOCYTES # (AUTO) 1.5 K/uL (0.0-1.0); MONOCYTES % (AUTO) 8.8 % (1.7-9.3); NEUTROPHILS # (AUTO) 14.3 K/uL (1.8-7.7); NEUTROPHILS % (AUTO) 85.6 % (40.0-70.0); PLATELET COUNT (AUTO) 176 K/uL (130-430); RED BLOOD CELL COUNT(AUTO) 3.57 MIL/uL (4.2-6.2); RED CELL DISTRIBUTION WIDTH 13.5 % (9.0-15.0); WHITE BLOOD COUNT (AUTO) 16.8 K/uL (4.8-10.8)
[2022-05-10] MEDS: amLODIPine BESYLATE 5 MG TABLET PO SCH (09:29)
[2022-05-10 09:52] LABS: ANION GAP 10 (5-15); CALCIUM 8.3 mg/dL (8.4-11.0); CHLORIDE 107 mmol/L (98-107); CREATININE 1.24 mg/dL (0.55-1.30); GLUCOSE 296 mg/dL (70-99); SODIUM SERUM 140 mmol/L (136-145); UREA NITROGEN, BLOOD 30 mg/dL (8-21)
[2022-05-10] MEDS: TRIAMCINOLONE ACETONIDE 0.025% 15 GM CREAM.GM. TP SCH ×2 (10:14→21:30)
[2022-05-10] MEDS: MUPIROCIN 2% TOPICAL OINTMENT 22 GM TP SCH ×2 (10:14→21:30)
--- NOTE | 2022-05-10 10:18 | NUR ---
NOTES; called Dr. Hall per charge nurse, surgery will be reschedule over the weekend. [facility] diet for now. nurse Linda informed.
[2022-05-10] MEDS: INSULIN REGULAR, HUMAN 100 UNITS/ML, 10 ML VIAL (humuLIN R) SUBCUT PRN ×2 (11:30→16:26)
[2022-05-10] MEDS: MAGNESIUM SULFATE 50 ML IV PRN ×2 (13:59→14:16)
[2022-05-10 14:26] VITALS: BP_SYST 134
[2022-05-10 16:23] VITALS: BP_SYST 147
--- NOTE | 2022-05-10 17:02 | NUR ---
0730 Pt. in bed, eyes closed, quezada catheter noted to have scant urine in color of drk. red, noc nurse stated that she placed the quezada due to pt. unable to void. She stated she has flushed the catheter with no success for good flow, and she had paged the primary MD multiple times with no call back. Will monitor. 0800 Pt. is npo for possible surgery for hip dislocation. Quezada flushed and repositioned with clots noted, clots removed and large amt. of drk brown urine noted in amt. of 1600. Pt. tolerated well, vss. [address] Bernabe, he gave order to flush quezada q2 prn to keep clear and remove clots. 1330 Dr. Anguiano in to see pt., consult for for urology given, Dr. Thurman to see pt. 1600 Dr. Thurman called he will see pt. tomorrow, wants nursing to keep flushing quezada prn, if unable to flush or remove clots, quezada to be replaced using Crudae quezada 1700 Urine now very light red color, no clots noted, quezada draining. Vss, no distress per pt. feels much better. Pt. signed consent for hip surgery tomorrow by Dr. Berger. Dr. Hall contacted that he will not be doing surgery due to insurance coverage. Addendum: 05/10/22 at 1722 by Twelve microfilm operator 1700 Documented on wrong pt. at 1700. Dr. Berger is not the surgeon for this pt. Dr. Hall is still surgeon for this pt.
--- NOTE | 2022-05-10 17:18 | NUR ---
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 Per EMR review, planned hip Sx for tomorrow; CCHO diet this afternoon then plan for NPO tomorrow for breakfast; appetite seems to have declined since initial Nutrition Assessment 05/05; pt is on RA; no BM noted since admission 05/02 (8 days ago). Pt would benefit from implementation of liberalized diet and wound healing modular when PO diet resumes. Current Diet Order/Nutrition Support: CCHO x0 days Patient/Significant Other Unable To Verbalize Education Provided Not Indicated Pertinent Medications: SSI, gentamicin, mag sulfate, morphine Pertinent Labs: Na 140 WNL, BUN 30 H, CRE 1.24 WNL, BG 296 H, POC BG 335 H, WBC 16.8 H Height (Feet) 6 feet Height (Inches) 2.00 inches Weight (Pounds) 306 pounds -- stable since 05/05 Patient Weight 138.799 kg Body Mass Index 39.28 kg/m2 %IBW 161 [employer]/Adjusted Body Weight 190#/86.4 kg Recent Weight Change unable to assess Weight Status Obese Food Allergies Yes - peanut per EMR review Usual Diet At Home unknown per RN screening Skin Integrity Comment: Ben scale: 14 -- no PIs noted per EMR review Current % PO Poor, 35% average x12 meal records NEW Estimated Energy Expenditure (kcals/day) 5447-0843 (30-35 kcal/kg IBW, obesity, GERIAT pre-op needs) Estimated Protein Required (g/day) 130-156 (1.5-1.8 gm/kg IBW, obesity, GERIAT pre-op needs) NEW Estimated Fluid Required (l/day) 2.2-2.6 (25-30 ml/kg IBW d/t GERIAT maintenance) Problem/Etiology/Signs/Symptoms Increased nutritional needs R/T metabolic demands AEB estimated energy and protein needs for geriatric pre-op nutrition, +SARS-CoV-2. *Ongoing Inadequate protein-energy intake R/T AMS, poor appetite AEB PO intake 50%. *Ongoing Expected Outcomes/Goals Monitor tolerance of nutrition support/intake w/ goal of pt meeting >75% of estimated needs, nutrition-related labs trending within acceptable range by DC, promote healing and skin integrity Dietitian Recommendations * Consider liberalized diet if/when medically appropriate -- Regular diet w/ Palmer BID to promote PO intake and wound healing * Bowel regimen -- suspect constipation, no BM documented since pt's admission 05/02 (8 days ago) Follow Up High Risk: F/U in 2-3 days
--- NOTE | 2022-05-10 17:28 | NUR ---
Dietitian Recommendations * Consider liberalized diet if/when medically appropriate -- Regular diet w/ Palmer BID to promote PO intake and wound healing * Bowel regimen -- suspect constipation, no BM documented since pt's admission 05/02 (8 days ago) LP, MS, RD Please refer to Nutrition F/U for details.
--- NOTE | 2022-05-10 18:24 | NUR ---
1800 Pt. to be npo after midnight for hip surgery tomorrow, consent signed, pt. refusing to be turned this evening, vss, denies pain, quezada draining red urine, call light in reach.
[2022-05-10] MEDS ORDERED: INSULIN GLARGINE 100 UNITS/ML 10 ML VIAL SUBCUT SCH (23:30)
[2022-05-11 00:50] VITALS: BP_SYST 132
[2022-05-11] MEDS: INSULIN REGULAR, HUMAN 100 UNITS/ML, 10 ML VIAL (humuLIN R) SUBCUT PRN ×4 (04:31→17:43)
[2022-05-11] MEDS: GENTAMICIN SULFATE 0.3% Non-Formulary OPHT. 5 ML DROPS OP SCH ×4 (06:26→17:43)
[2022-05-11] MEDS: ceFAZolin SODIUM 1 GM in D5W 50 ML IV SCH ×3 (06:26→22:14)
[2022-05-11] MEDS: NEOMYCIN/POLYMYXN B/GRAMICIDIN 10 ML OPHT. DROPS OP SCH ×5 (06:26→22:15)
[2022-05-11 08:00] VITALS: BP_SYST 132
[2022-05-11] MEDS ORDERED: fentaNYL CITRATE/PF 100 MCG/2 ML AMP IVP PRN ×2 (08:30)
[2022-05-11] MEDS ORDERED: METOCLOPRAMIDE HCL 10 MG/2 ML VIAL IVP PRN (08:30)
[2022-05-11] MEDS ORDERED: ONDANSETRON HCL 4 MG/2 ML VIAL IVP PRN (08:30)
[2022-05-11] MEDS: TRIAMCINOLONE ACETONIDE 0.025% 15 GM CREAM.GM. TP SCH (08:40)
[2022-05-11] MEDS: amLODIPine BESYLATE 5 MG TABLET PO SCH (08:40)
[2022-05-11] MEDS: 0.45% NACL 1,000 ML IV SCH ×2 (08:40→20:30)
--- NOTE | 2022-05-11 08:50 | NUR ---
patient blood sugar 262. patient refused insulin.
[2022-05-11 10:18] LABS: ANION GAP 11 (5-15); CALCIUM 8.3 mg/dL (8.4-11.0); CHLORIDE 104 mmol/L (98-107); CREATININE 1.15 mg/dL (0.55-1.30); GLUCOSE 311 mg/dL (70-99); POTASSIUM 3.6 mmol/L (3.5-5.1); SODIUM SERUM 137 mmol/L (136-145); UREA NITROGEN, BLOOD 25 mg/dL (8-21)
[2022-05-11 12:50] VITALS: BP_SYST 138
[2022-05-11] MEDS ORDERED: SEVOFLURANE 15 MIN GAS INH ONE (14:15)
[2022-05-11] MEDS ORDERED: SUCCINYLCHOLINE CHLORIDE 20 MG/ML(QUELICIN) IVP ONE (14:15)
[2022-05-11] MEDS ORDERED: LR 500 ML IV.SOLN IV ONE (14:15)
[2022-05-11] MEDS ORDERED: NS 1000 ML IV.SOLN IV ONE (14:15)
[2022-05-11] MEDS ORDERED: PROPOFOL 200MG/ 20ML VIAL (DIPRIVAN) IV ONE (14:15)
[2022-05-11 15:13] LABS: BASOPHILS # (AUTO) 0.2 K/uL (0.0-0.2); BASOPHILS % (AUTO) 1.4 % (0.0-2.0); EOSINOPHILS # (AUTO) 0.4 K/uL (0.0-0.4); EOSINOPHILS % (AUTO) 2.9 % (0.0-4.0); HEMATOCRIT 33.4 % (36-54); HEMOGLOBIN 11.2 g/dL (14.0-18.0); LYMPHOCYTES # (AUTO) 0.7 K/uL (1.0-5.5); LYMPHOCYTES % (AUTO) 5.2 % (20.5-51.5); MEAN CORPUSCULAR HEMOGLOBIN 32 pg (27-31); MEAN CORPUSCULAR HGB CONC 33 % (32-36); MEAN CORPUSCULAR VOLUME 97 fL (79.0-98.0); MONOCYTES # (AUTO) 1.2 K/uL (0.0-1.0); MONOCYTES % (AUTO) 8.7 % (1.7-9.3); NEUTROPHILS # (AUTO) 10.8 K/uL (1.8-7.7); NEUTROPHILS % (AUTO) 81.8 % (40.0-70.0); PLATELET COUNT (AUTO) 197 K/uL (130-430); RED BLOOD CELL COUNT(AUTO) 3.46 MIL/uL (4.2-6.2); RED CELL DISTRIBUTION WIDTH 13.8 % (9.0-15.0); WHITE BLOOD COUNT (AUTO) 13.2 K/uL (4.8-10.8)
--- NOTE | 2022-05-11 15:50 | NUR ---
patient resting in bed. patient refused SCDS to his right lower extremity.
[2022-05-11 16:28] VITALS: BP_SYST 143
--- NOTE | 2022-05-11 17:44 | NUR ---
patient blood sugar 222. patient refused insulin.
[2022-05-11 20:00] VITALS: BP_SYST 142
[2022-05-11] MEDS ORDERED: INSULIN GLARGINE 100 UNITS/ML 10 ML VIAL SUBCUT SCH (21:00)
[2022-05-12] VITALS: BP_SYST 135
[2022-05-12] MEDS: GENTAMICIN SULFATE 0.3% Non-Formulary OPHT. 5 ML DROPS OP SCH ×6 (00:02→23:46)
[2022-05-12 00:12] VITALS: BP_SYST 144
[2022-05-12] MEDS: HYDROcodone/ACETAMIN 5-325 MG TAB (NORCO/ VICODIN) PO PRN (02:28)
--- NOTE | 2022-05-12 03:30 | NUR ---
TRANSFER OF CARE FROM [facility] RN APPROXIMATELY AT THIS TIME Documentation has not been done yet. Lorraine RN states they will finish the documentation.
--- NOTE | 2022-05-12 05:36 | NUR ---
IV inserted LFA 22G
[2022-05-12] MEDS: MORPHINE 4 MG INJ. 4 MG/ML VIAL IVP PRN (05:37)
[2022-05-12] MEDS ORDERED: cefTRIAXone 1 GM in D5W 50 ML IV SCH (06:45)
[2022-05-12] MEDS: NEOMYCIN/POLYMYXN B/GRAMICIDIN 10 ML OPHT. DROPS OP SCH ×5 (06:48→23:47)
[2022-05-12] MEDS: INSULIN REGULAR, HUMAN 100 UNITS/ML, 10 ML VIAL (humuLIN R) SUBCUT PRN ×3 (06:57→16:58)
--- NOTE | 2022-05-12 07:30 | NUR ---
CLOSING NOTES Patient resting in bed - no s/s pain or distress noted. Respirations even and unlabored - head of bed elevated. IV site patent - no s/s redness, infection, or infiltration. Bed locked and in lowest position. Bed alarm on. Call light within reach.
[2022-05-12 08:00] VITALS: BP_SYST 140
--- NOTE | 2022-05-12 08:32 | NUR ---
pt refused his insulin will continue to try to get pt to take insulin
[2022-05-12 09:29] LABS: ANION GAP 8 (5-15); CALCIUM 7.9 mg/dL (8.4-11.0); CHLORIDE 106 mmol/L (98-107); CREATININE 1.11 mg/dL (0.55-1.30); GLUCOSE 285 mg/dL (70-99); POTASSIUM 3.2 mmol/L (3.5-5.1); SODIUM SERUM 140 mmol/L (136-145); UREA NITROGEN, BLOOD 22 mg/dL (8-21)
[2022-05-12] MEDS: cefTRIAXone 1 GM in D5W 50 ML IV SCH (09:56)
[2022-05-12] MEDS: 0.45% NACL 1,000 ML IV SCH ×2 (09:56→21:30)
[2022-05-12] MEDS: TRIAMCINOLONE ACETONIDE 0.025% 15 GM CREAM.GM. TP SCH ×3 (09:57→23:44)
[2022-05-12] MEDS: amLODIPine BESYLATE 5 MG TABLET PO SCH (09:57)
[2022-05-12 12:30] VITALS: BP_SYST 131
[2022-05-12 12:34] LABS: HEMATOCRIT 33.3 % (36-54); HEMOGLOBIN 11.2 g/dL (14.0-18.0); MEAN CORPUSCULAR HEMOGLOBIN 32 pg (27-31); MEAN CORPUSCULAR HGB CONC 34 % (32-36); PLATELET COUNT (AUTO) 191 K/uL (130-430); RED CELL DISTRIBUTION WIDTH 13.1 % (9.0-15.0); WHITE BLOOD COUNT (AUTO) 10.5 K/uL (4.8-10.8)
[2022-05-12 12:40] LABS: MEAN CORPUSCULAR VOLUME 95 fL (79.0-98.0)
[2022-05-12] MEDS: POTASSIUM CHLORIDE 20 MEQ TAB.PRT.SR PO PRN (13:26)
[2022-05-12 13:44] LABS: BAND % (MANUAL) 2 % (0-6); BASOPHILS % (MANUAL) 0 % (0-2); EOSINOPHILS % (MANUAL) 2 % (0-7); LYMPHOCYTES % (MANUAL) 6 % (20-46); METAMYELOCYTES % 2 % (0-0); MONOCYTES % (MANUAL) 7 % (0-11); MYELOCYTES % 1 % (0-0)
[2022-05-12 16:45] VITALS: BP_SYST 139
[2022-05-12 20:46] VITALS: BP_SYST 145
[2022-05-12] MEDS: INSULIN GLARGINE 100 UNITS/ML 10 ML VIAL SUBCUT SCH (22:00)
--- NOTE | 2022-05-12 22:00 | NUR ---
SON ROSA SPOKE WITH DEVONTE HE WANTED UPDATE ON PT. SON ALSO REQUESTED TO BE ALLOWED TO VISIT PT. REPORTS THE PT IS BECOMING DEPRESSED IN THE ROOM ALL Y HIMSELF
--- NOTE | 2022-05-12 22:00 | NUR ---
OPENING NOTES: PT IN ISOLATION ROOM ON DROPLET PRECAUTIONS. PATIENT IS RESTING IN BED BUT REPORTS " I AM TIRED OF BEING STUCK IN THIS ROOM BY MYSELF." PT IS AOX3 ABLE TO MAKE NEEDS KNOWN. PT HAS IV IN L F/A #22 WITH FLUIDS INFUSING. PT TOLD HE WILL BE NPO AFTER MIDNIGHT DUE TO POSSIBLE ORIF IN THE AM.. NO DISTRESS OR PAIN NOTED AT THIS TIME. CALL LIGHT AND PERSONAL ITEMS WITHIN REACH. STABLE CONDITION AT THIS TIME. ALL SAFETY PRECAUTIONS ARE IN PLACE
[2022-05-13] MEDS: NEOMYCIN/POLYMYXN B/GRAMICIDIN 10 ML OPHT. DROPS OP SCH ×5 (05:19→22:00)
[2022-05-13] MEDS: GENTAMICIN SULFATE 0.3% Non-Formulary OPHT. 5 ML DROPS OP SCH ×5 (05:19→22:00)
[2022-05-13] MEDS: D5NS 1,000 ML IV SCH ×2 (07:45→22:03)
[2022-05-13] MEDS: amLODIPine BESYLATE 5 MG TABLET PO SCH (09:00)
[2022-05-13] MEDS: cefTRIAXone 1 GM in D5W 50 ML IV SCH (09:31)
[2022-05-13] MEDS: TRIAMCINOLONE ACETONIDE 0.025% 15 GM CREAM.GM. TP SCH ×2 (09:31→21:00)
[2022-05-13] MEDS ORDERED: DEXTROSE 50%-WATER 50 ML DISP.SYRIN IVP PRN (11:00)
[2022-05-13] MEDS ORDERED: GLUCOSE (DEXTROSE) ORAL GEL -Adults PO PRN (11:00)
[2022-05-13] MEDS ORDERED: D5W 1,000 ML IV PRN (11:00)
--- NOTE | 2022-05-13 11:31 | NUR ---
rnnotes patients BS 210, NPO at this time, no coverage given.
--- NOTE | 2022-05-13 12:09 | NUR ---
DISCHARGE PLANNING Pt cont on isolation for +Covid. Called pt room & cell with no answer. Called & lt msg with son Ash Wong, ph [phone], to return call to discuss dc planning & SNF preference.
--- NOTE | 2022-05-13 15:11 | NUR ---
rn notes Spoke with Dr Hall, per , we are waiting for some type of equipment for patients surgery. Wait until 1930, if equipment is not here, feed patient, then he can remain on NPO at midnight again.
[2022-05-13] MEDS: INSULIN REGULAR, HUMAN 100 UNITS/ML, 10 ML VIAL (humuLIN R) SUBCUT PRN (17:31)
--- NOTE | 2022-05-13 17:40 | NUR ---
rn notes patient remains on room air. Message left to infection control, Toyin if the isolation can be removed since it is more than [address] Anand put patient back on CCHO diet as he does not think equipment needed for surgery will arrive tonight. Plan is to NPO patient at midnight later and possible surgery tomorrow AM. Last BS check at 261, 6 units of insulin given, patient currently eating dinner. FC remains in place and is draining well.
[2022-05-13] MEDS: INSULIN GLARGINE 100 UNITS/ML 10 ML VIAL SUBCUT SCH (21:00)
[2022-05-13] MEDS: hydrALAZINE HCL 20 MG/ML VIAL IVP PRN (22:00)
[2022-05-13] MEDS: ACETAMINOPHEN 325 MG TABLET PO PRN (22:00)
[2022-05-14] VITALS: BP_SYST 119
[2022-05-14] MEDS: NEOMYCIN/POLYMYXN B/GRAMICIDIN 10 ML OPHT. DROPS OP SCH ×5 (06:00→21:57)
[2022-05-14] MEDS: GENTAMICIN SULFATE 0.3% Non-Formulary OPHT. 5 ML DROPS OP SCH ×5 (06:00→21:56)
[2022-05-14] MEDS: ACETAMINOPHEN 325 MG TABLET PO PRN (06:00)
[2022-05-14 07:05] LABS: ANION GAP 11 (5-15); CALCIUM 7.9 mg/dL (8.4-11.0); CHLORIDE 103 mmol/L (98-107); CREATININE 1.07 mg/dL (0.55-1.30); GLUCOSE 284 mg/dL (70-99); POTASSIUM 3.2 mmol/L (3.5-5.1); SODIUM SERUM 137 mmol/L (136-145); UREA NITROGEN, BLOOD 16 mg/dL (8-21)
[2022-05-14 08:00] VITALS: BP_SYST 125
[2022-05-14 08:09] LABS: BASOPHILS % (AUTO) 0.4 % (0.0-2.0); EOSINOPHILS # (AUTO) 0.2 K/uL (0.0-0.4); EOSINOPHILS % (AUTO) 1.8 % (0.0-4.0); HEMATOCRIT 36.1 % (36-54); HEMOGLOBIN 12.4 g/dL (14.0-18.0); LYMPHOCYTES # (AUTO) 0.9 K/uL (1.0-5.5); LYMPHOCYTES % (AUTO) 7.7 % (20.5-51.5); MEAN CORPUSCULAR HEMOGLOBIN 32 pg (27-31); MEAN CORPUSCULAR HGB CONC 34 % (32-36); MEAN CORPUSCULAR VOLUME 94 fL (79.0-98.0); MONOCYTES # (AUTO) 0.9 K/uL (0.0-1.0); NEUTROPHILS # (AUTO) 10.1 K/uL (1.8-7.7); PLATELET COUNT (AUTO) 221 K/uL (130-430); RED BLOOD CELL COUNT(AUTO) 3.85 MIL/uL (4.2-6.2); WHITE BLOOD COUNT (AUTO) 12.1 K/uL (4.8-10.8)
[2022-05-14 09:21] LABS: NEUTROPHILS % (AUTO) 83.1 % (40.0-70.0)
[2022-05-14] MEDS: cefTRIAXone 1 GM in D5W 50 ML IV SCH (09:53)
[2022-05-14] MEDS: amLODIPine BESYLATE 5 MG TABLET PO SCH (09:57)
[2022-05-14] MEDS: TRIAMCINOLONE ACETONIDE 0.025% 15 GM CREAM.GM. TP SCH ×2 (09:57→21:56)
[2022-05-14] MEDS: INSULIN REGULAR, HUMAN 100 UNITS/ML, 10 ML VIAL (humuLIN R) SUBCUT PRN ×3 (12:39→22:00)
[2022-05-14] MEDS: D5NS 1,000 ML IV SCH (13:42)
[2022-05-14 14:23] VITALS: BP_SYST 125
--- NOTE | 2022-05-14 16:11 | NUR ---
Nutrition F/U Admitting Diagnosis R hip dislocation Reviewed Pertinent Medical/Surgical Hx Medical Record Medical History Comment: 82yM with pmh DM2, advanced arthritis, hx knee replacement, hx hip replacement, morbid obesity, essential HTN. Traumatic fall with dislocation of the right hip arthroplasty, ALOC-etiology uncertain, rule out intracranial process, cellulitis of the L upper eyelid. SARS-CoV-2 Ag (Rapid) Positive 05/02, 05/04, 05/09 & COVID-19 ([facility]) Positive 05/07 SARS-CoV-2 Ag (Rapid) NEGATIVE 05/13 Subjective Information: RD deferred bedside visit d/t high workload. Per RD chart review, appetite has improved since last visit, however still with poor PO. Pt consuming 49% avg x 6 meals (last RD visit 35% x 12 meals). Per EMR, pt c/o hip pain and is scheduled for ortho hip sx this evening. Pt previously NPO for sx, but it has been rescheduled a few times. Per chart notes, patient feeling depressed d/t being in room alone because of COVID-19 isolation protocols. LBM 05/12 x 1. Current Diet Order/Nutrition Support: CCHO x 3 days Patient/Significant Other Unable To Verbalize Education Provided Not Indicated Pertinent Medications: D5NS @ 70mL/hr + D5W @ 50mL, lantus, amaldopine, corticosteroid, abx, apresoline, Mg sulfate. K-dur Pertinent Labs: Na 140 WNL, BG 284 H, POC BG 316 H, WBC 12.1 H, Hgb 12.4, Hct WNL, RBC 3.85 L, K 3.2L, Ca 7.9L, Hgba1c 7.3 H Height (Feet) 6 feet Height (Inches) 2.00 inches Weight (Pounds) 306 pounds -- stable since 05/05 Patient Weight 138.799 kg Body Mass Index 39.28 kg/m2 %IBW 161 [place]/Adjusted Body Weight 190#/86.4 kg Recent Weight Change unable to assess Weight Status Obese Food Allergies Yes - peanut per EMR review Usual Diet At Home unknown per RN screening Skin Integrity Comment: Ben scale: 16 05/14 Wounds noted in EMR: Redness- buttocks; Dry scab- L-arm, R-arm, R-chest; Erythema- L-eye, R-neck; Ecchymosis- L-R- arm, posterior R-thigh, R-upper arm Current % PO Poor, 49% x 6 meals NEW Estimated Energy Expenditure (kcals/day) 5603-4703 (30-35 kcal/kg IBW, obesity, GERIAT pre-op needs) Estimated Protein Required (g/day) 130-156 (1.5-1.8 gm/kg IBW, obesity, GERIAT pre-op needs) NEW Estimated Fluid Required (l/day) 2.2-2.6 (25-30 ml/kg IBW d/t GERIAT maintenance) Problem/Etiology/Signs/Symptoms * Increased nutritional needs R/T metabolic demands AEB estimated energy and protein needs for geriatric pre-op nutrition, +SARS-CoV-2. (Ongoing) * Inadequate protein-energy intake R/T AMS, poor appetite AEB PO intake 49%. (Ongoing) Expected Outcomes/Goals - Monitor tolerance of nutrition support/intake w/ goal of pt meeting >75% of estimated needs, nutrition-related labs trending within acceptable range by DC, promote healing and skin integrity, BM q 1-3 days Dietitian Recommendations * Consider liberalized diet if/when medically appropriate -- Regular diet w/ Palmer BID to promote PO intake and wound healing * Rec wound care supplements s/p hip sx: daily MVI, 250mg vit c, zincate 220mg x 14 days * Glucerna BID Follow Up High Risk: F/U in 2-3 days 05/16-05/17
--- NOTE | 2022-05-14 16:14 | NUR ---
Dietitian Recommendations * Consider liberalized diet if/when medically appropriate -- Regular diet w/ Palmer BID to promote PO intake and wound healing * Rec wound care supplements s/p hip sx: daily MVI, 250mg vit c, zincate 220mg x 14 days * Glucerna BID Please refer to Nutritional F/U for details, thanks! CC, MPH, RDN
[2022-05-14] MEDS: POTASSIUM CHLORIDE 20 MEQ TAB.PRT.SR PO PRN (17:25)
--- NOTE | 2022-05-14 18:47 | NUR ---
0800: AWAKE, ALERT, ORIENTED X 3 TO NAME, PERSON, PLACE. RESPIRATION EVEN AND UNLABORED NO S/S OF ANY ACUTE DISTRESS NOTED. ABLE TO VERBALIZE NEEDS NO C/O ANY PAIN OR DISCOMFORT NOTED. ABDOMEN SOFT AND NON-DISTENDED, POSITIVE BOWEL SOUND X 4 NO N/V OR DIARRHEA NOTED. SKIN WARM AND DRY INTACT, FX RIGHT GROIN PLAN FOR SURGERY TOMORROW WITH DR. CARDENAS. TO BE NPO POST MIDNIGHT.
[2022-05-14 20:30] VITALS: BP_SYST 133
--- NOTE | 2022-05-14 20:50 | NUR ---
Received call from pt's son Ash Received call from pt's son Ash and informed him of changed consent to possible revision. Per son he is refusing to give consent for his father. He states he already signed 3 consents and he wants to change hospital. He states he will call turn out worker or case management in the AM. BRYCE made aware.
[2022-05-14] MEDS: INSULIN GLARGINE 100 UNITS/ML 10 ML VIAL SUBCUT SCH (22:04)
--- NOTE | 2022-05-14 22:20 | NUR ---
Endorse care to [place] [facility] for continuity of care.
--- NOTE | 2022-05-14 22:38 | NUR ---
Juan and spoke w/ Called and spoke with Dr. Hall and informed him that this nurse spoke with pt's son Ash regarding the consent for closed vs. open revision and pt's son refusing to consent over the phone. Per MD he will speak with the son in the AM and surgery will probably be in the afternoon as they are waiting for equipment.
[2022-05-15 00:36] VITALS: BP_SYST 154
[2022-05-15] MEDS: D5NS 1,000 ML IV SCH ×2 (00:39→05:30)
[2022-05-15] MEDS: GENTAMICIN SULFATE 0.3% Non-Formulary OPHT. 5 ML DROPS OP SCH ×5 (05:00→21:17)
[2022-05-15] MEDS: NEOMYCIN/POLYMYXN B/GRAMICIDIN 10 ML OPHT. DROPS OP SCH ×5 (05:00→21:17)
[2022-05-15] MEDS: INSULIN REGULAR, HUMAN 100 UNITS/ML, 10 ML VIAL (humuLIN R) SUBCUT PRN ×2 (06:16→18:05)
[2022-05-15 06:50] LABS: BASOPHILS # (AUTO) 0.1 K/uL (0.0-0.2); BASOPHILS % (AUTO) 0.7 % (0.0-2.0); EOSINOPHILS # (AUTO) 0.2 K/uL (0.0-0.4); EOSINOPHILS % (AUTO) 1.9 % (0.0-4.0); HEMATOCRIT 32.6 % (36-54); HEMOGLOBIN 11.5 g/dL (14.0-18.0); LYMPHOCYTES # (AUTO) 0.9 K/uL (1.0-5.5); LYMPHOCYTES % (AUTO) 8.6 % (20.5-51.5); MEAN CORPUSCULAR HEMOGLOBIN 33 pg (27-31); MEAN CORPUSCULAR HGB CONC 35 % (32-36); MEAN CORPUSCULAR VOLUME 94 fL (79.0-98.0); MONOCYTES # (AUTO) 0.8 K/uL (0.0-1.0); MONOCYTES % (AUTO) 7.3 % (1.7-9.3); NEUTROPHILS # (AUTO) 8.7 K/uL (1.8-7.7); NEUTROPHILS % (AUTO) 81.5 % (40.0-70.0); PLATELET COUNT (AUTO) 240 K/uL (130-430); RED BLOOD CELL COUNT(AUTO) 3.49 MIL/uL (4.2-6.2); WHITE BLOOD COUNT (AUTO) 10.6 K/uL (4.8-10.8)
[2022-05-15] MEDS: cefTRIAXone 1 GM in D5W 50 ML IV SCH (08:51)
[2022-05-15] MEDS: TRIAMCINOLONE ACETONIDE 0.025% 15 GM CREAM.GM. TP SCH ×2 (08:52→21:16)
[2022-05-15] MEDS: amLODIPine BESYLATE 5 MG TABLET PO SCH (08:53)
[2022-05-15 09:06] LABS: ANION GAP 6 (5-15); CALCIUM 7.2 mg/dL (8.4-11.0); CHLORIDE 107 mmol/L (98-107); CREATININE 0.99 mg/dL (0.55-1.30); GLUCOSE 245 mg/dL (70-99); POTASSIUM 3.1 mmol/L (3.5-5.1); SODIUM SERUM 141 mmol/L (136-145); UREA NITROGEN, BLOOD 12 mg/dL (8-21)
[2022-05-15] MEDS: POTASSIUM CHLORIDE 20 MEQ TAB.PRT.SR PO PRN (11:26)
[2022-05-15 12:04] VITALS: BP_SYST 136
[2022-05-15] MEDS ORDERED: POTASSIUM CHLORIDE 40 MEQ in NS 250 ML IV ONE (13:00)
--- NOTE | 2022-05-15 15:23 | NUR ---
0800: ASLEEP EASILY AROUSABLE WITH VERBAL STIMULI, ORIENTED X 3 TO NAME, PERSON, AND PLACE. RESPIRATION EVEN AND UNLABORED NO S/S OF ANY ACUTE DISTRESS NOTED. ABLE TO VERBALIZE NEEDS NO CO ANY PAIN OR DISCOMFORT NOTED. ABDOMEN SOFT AND NON-DISTENDED, POSITIVE BOWL SOUND X 4 NO N/V OR DIARRHEA NOTED. SKIN WARM AND DRY. NPO FOR NOW SCHEDULE FOR CLOSE VS OPEN REDUCTION OF FX RIGHT HIP. WILL CONTINUE TO MONITR AND REASSESS PATIENT PRN. 1300: PLAN SURGERY PER OR STAFF, CONTACT SON VAL, REFUSED TO GIVE CONSENT FOR PLANNED PROCEDURE, DR. CARDENAS MADE AWARE THRU OR NURSE ER . WILL WAIT FOR DR. CARDENAS TO CALL TO GIVE OK FOR SURGERY POST CONFERENCE WITH PATIENT'S SON.
[2022-05-15 16:09] VITALS: BP_SYST 162
--- NOTE | 2022-05-15 16:10 | NUR ---
Wound Evaluation: Wound Consult ordered for Low Ben Score. Patient evaluated for a low Ben score of 7. Patient was awake, alert, confused, and received in a Kathy Bed with a foam mattress. Patient needs assist to turn in bed. Skin is intact. Recommend encourage and assist patient as needed with repositioning side to side only every 2 hours with pillow support. Elevate, off-load and float bilateral heels with pillows. Offload pressure areas with pillows for pressure re-distribution. Perform skin care and monitor skin integrity Q shift. Use moisture barrier cream on moisture susceptible areas QID and PRN for soiling. Place patient on a low air-loss mattress.
[2022-05-15 20:00] VITALS: BP_SYST 160
[2022-05-15] MEDS: INSULIN GLARGINE 100 UNITS/ML 10 ML VIAL SUBCUT SCH (21:14)
[2022-05-16 00:16] VITALS: BP_SYST 154
[2022-05-16 04:00] VITALS: BP_SYST 158
--- NOTE | 2022-05-16 06:01 | NUR ---
PATIENT SLEPT WELL THE WHOLE SHIFT. AAOX4. AROUSABLE TO VERBAL STIMULI. COOPERATIVE. ABLE TO MAKE NEEDS KNOWN. PIV INTACT AND PATENT. NO S/S OF INFILTRATION NOTED. RT HIP STILL WITH DISLOCATION. NO COMPLAINTS OF PAIN OR DISCOMFORT NOTED. STABLE THE WHOLE NIGHT. REPOSITIONED TO SIDES REGULARLY. KEPT WARM AND COMFORTABLE. SAFETY AND FALL PRECAUTIONS OBSERVED. ALL NEEDS ATTENDED. CALL LIGHT PLACED WITHIN REACH. MONITORED CLOSELY.
[2022-05-16] MEDS: NEOMYCIN/POLYMYXN B/GRAMICIDIN 10 ML OPHT. DROPS OP SCH ×4 (06:14→17:00)
[2022-05-16] MEDS: GENTAMICIN SULFATE 0.3% Non-Formulary OPHT. 5 ML DROPS OP SCH ×4 (06:15→17:00)
[2022-05-16] MEDS: INSULIN REGULAR, HUMAN 100 UNITS/ML, 10 ML VIAL (humuLIN R) SUBCUT PRN ×3 (06:37→16:57)
[2022-05-16] MEDS: D5NS 1,000 ML IV SCH (06:38)
[2022-05-16 07:01] LABS: BASOPHILS # (AUTO) 0.1 K/uL (0.0-0.2); BASOPHILS % (AUTO) 0.7 % (0.0-2.0); EOSINOPHILS # (AUTO) 0.3 K/uL (0.0-0.4); EOSINOPHILS % (AUTO) 2.7 % (0.0-4.0); HEMATOCRIT 32.5 % (36-54); HEMOGLOBIN 11.6 g/dL (14.0-18.0); LYMPHOCYTES # (AUTO) 1.1 K/uL (1.0-5.5); LYMPHOCYTES % (AUTO) 10.8 % (20.5-51.5); MEAN CORPUSCULAR HEMOGLOBIN 33 pg (27-31); MEAN CORPUSCULAR HGB CONC 36 % (32-36); MEAN CORPUSCULAR VOLUME 93 fL (79.0-98.0); MONOCYTES # (AUTO) 0.8 K/uL (0.0-1.0); MONOCYTES % (AUTO) 7.9 % (1.7-9.3); NEUTROPHILS # (AUTO) 7.7 K/uL (1.8-7.7); NEUTROPHILS % (AUTO) 77.9 % (40.0-70.0); PLATELET COUNT (AUTO) 246 K/uL (130-430); RED BLOOD CELL COUNT(AUTO) 3.49 MIL/uL (4.2-6.2); RED CELL DISTRIBUTION WIDTH 13.1 % (9.0-15.0); WHITE BLOOD COUNT (AUTO) 9.8 K/uL (4.8-10.8)
[2022-05-16 07:14] LABS: ANION GAP 7 (5-15); CALCIUM 7.7 mg/dL (8.4-11.0); CHLORIDE 108 mmol/L (98-107); CREATININE 0.98 mg/dL (0.55-1.30); GLUCOSE 191 mg/dL (70-99); POTASSIUM 3.6 mmol/L (3.5-5.1); SODIUM SERUM 142 mmol/L (136-145); UREA NITROGEN, BLOOD 11 mg/dL (8-21)
[2022-05-16 08:06] VITALS: BP_SYST 106
[2022-05-16] MEDS: amLODIPine BESYLATE 5 MG TABLET PO SCH (08:37)
[2022-05-16] MEDS: cefTRIAXone 1 GM in D5W 50 ML IV SCH (08:39)
[2022-05-16] MEDS: TRIAMCINOLONE ACETONIDE 0.025% 15 GM CREAM.GM. TP SCH (08:39)
[2022-05-16] MEDS ORDERED: MORPHINE 2 MG/ML INJ. SYRINGE IVP PRN (10:30)
[2022-05-16] MEDS ORDERED: NALOXONE HCL 0.4 MG/ML AMP (NARCAN) IVP PRN (10:45)
[2022-05-16] MEDS: MORPHINE 2 MG/ML INJ. SYRINGE IVP PRN (11:38)
[2022-05-16 12:19] VITALS: BP_SYST 162
[2022-05-16 16:19] VITALS: BP_SYST 150
--- NOTE | 2022-05-16 18:07 | NUR ---
PT HAS BEEN STABLE THROUGHOUT THE DAY. PT ONLY MEDICATED X1 WITH MORPHINE FOR RIGHT HIP PAIN. REPOSITIONED Q2 HOURS. ALL CARE NEEDS MET. FALL/SAFETY/SKIN/ISOLATION PRECAUTIONS IN PLACE. WILL ENDORSE CARE TO PM NURSE.
[2022-05-16 20:00] VITALS: BP_SYST 138
[2022-05-17] VITALS (7 sets, daily range): BP systolic 115–157
[2022-05-17] MEDS: GENTAMICIN SULFATE 0.3% Non-Formulary OPHT. 5 ML DROPS OP SCH (00:31)
[2022-05-17] MEDS: NEOMYCIN/POLYMYXN B/GRAMICIDIN 10 ML OPHT. DROPS OP SCH ×6 (00:32→22:00)
[2022-05-17] MEDS: TRIAMCINOLONE ACETONIDE 0.025% 15 GM CREAM.GM. TP SCH ×3 (00:35→21:00)
[2022-05-17] MEDS: D5NS 1,000 ML IV SCH (00:36)
[2022-05-17] MEDS: MORPHINE 2 MG/ML INJ. SYRINGE IVP PRN (01:59)
[2022-05-17] MEDS: INSULIN GLARGINE 100 UNITS/ML 10 ML VIAL SUBCUT SCH ×2 (03:03→23:19)
--- NOTE | 2022-05-17 07:15 | NUR ---
OPENING NOTE RECEIVED SBAR FROM ARCHEOLOGIST RN PT IN BED, RESPIRATIONS EVEN, REGULAR, AND NON-LABORED. ERVIN IS PLACED AND RUNNING BY GRAVITY
[2022-05-17 07:17] LABS: BASOPHILS # (AUTO) 0.1 K/uL (0.0-0.2); BASOPHILS % (AUTO) 0.8 % (0.0-2.0); EOSINOPHILS # (AUTO) 0.3 K/uL (0.0-0.4); EOSINOPHILS % (AUTO) 2.9 % (0.0-4.0); HEMATOCRIT 32.4 % (36-54); HEMOGLOBIN 11.5 g/dL (14.0-18.0); LYMPHOCYTES # (AUTO) 0.9 K/uL (1.0-5.5); LYMPHOCYTES % (AUTO) 10.5 % (20.5-51.5); MEAN CORPUSCULAR HEMOGLOBIN 33 pg (27-31); MEAN CORPUSCULAR HGB CONC 35 % (32-36); MEAN CORPUSCULAR VOLUME 93 fL (79.0-98.0); MONOCYTES # (AUTO) 0.8 K/uL (0.0-1.0); MONOCYTES % (AUTO) 8.3 % (1.7-9.3); NEUTROPHILS % (AUTO) 77.5 % (40.0-70.0); PLATELET COUNT (AUTO) 245 K/uL (130-430); RED BLOOD CELL COUNT(AUTO) 3.49 MIL/uL (4.2-6.2); RED CELL DISTRIBUTION WIDTH 13.2 % (9.0-15.0)
[2022-05-17 08:17] LABS: ANION GAP 6 (5-15); CALCIUM 7.8 mg/dL (8.4-11.0); CHLORIDE 106 mmol/L (98-107); CREATININE 0.98 mg/dL (0.55-1.30); GLUCOSE 191 mg/dL (70-99); POTASSIUM 3.6 mmol/L (3.5-5.1); SODIUM SERUM 139 mmol/L (136-145); UREA NITROGEN, BLOOD 10 mg/dL (8-21)
[2022-05-17] MEDS: amLODIPine BESYLATE 5 MG TABLET PO SCH (08:27)
[2022-05-17] MEDS: cefTRIAXone 1 GM in D5W 50 ML IV SCH (08:29)
--- NOTE | 2022-05-17 08:40 | NUR ---
MD TOWNSEND AT PT'S BEDSIDE.EXAMINING PT.
[2022-05-17 11:19] LABS: INR 1.2 (0.80-1.20); PROTHROMBIN TIME 12.6 SECS (9.5-12.5)
--- NOTE | 2022-05-17 12:00 | NUR ---
NURSE NOTE PROVIDED CHG AND LINEN CHANGE.
[2022-05-17] MEDS ORDERED: NORMAL SALINE 10 ML VIAL ONE (12:10)
[2022-05-17] MEDS ORDERED: SEVOFLURANE 15 MIN GAS INH ONE (12:10)
[2022-05-17] MEDS ORDERED: MEPERIDINE 100 MG INJ. 100 MG/ML VIAL ONE (12:10)
[2022-05-17] MEDS ORDERED: fentaNYL CITRATE 250 MCG/5 ML AMP ONE (12:10)
[2022-05-17] MEDS ORDERED: PROPOFOL 200MG/ 20ML VIAL (DIPRIVAN) IV ONE (12:10)
[2022-05-17] MEDS ORDERED: LABETALOL 100 MG/ 20ML VIAL ONE (12:10)
[2022-05-17] MEDS ORDERED: LR 1,000 ML IV.SOLN IV ONE (12:10)
[2022-05-17] MEDS ORDERED: BUPIVACAINE /PF 0.25% 10 ML VIAL INJ ONE (12:10)
[2022-05-17 12:44] LABS: BILIRUBIN,URINE NEGATIVE (NEGATIVE); BLOOD, URINE 3+ (NEGATIVE); CLARITY/URINE CLEAR (CLEAR); COLOR,URINE YELLOW (YELLOW); GLUCOSE,URINE NEGATIVE (NEGATIVE); KETONES,URINE NEGATIVE (NEGATIVE); LEUKOCYTE ESTERASE ,URINE NEGATIVE (NEGATIVE); NITRITE, URINE NEGATIVE (NEGATIVE); PROTEIN URINE 1+ (NEGATIVE); UROBILINOGEN,URINE 0.2 (0.2-1.0)
--- NOTE | 2022-05-17 13:05 | NUR ---
OR OR NURSES CAME TO TRANSFERRED PT TO OR FOR SX VIA BED.
[2022-05-17] MEDS ORDERED: ONDANSETRON HCL 4 MG/2 ML VIAL IVP PRN (14:00)
[2022-05-17] MEDS ORDERED: NACL 0.9% 1,000 ML IV SCH (14:00)
[2022-05-17] MEDS ORDERED: MEPERIDINE HCL/PF 25 MG/ML DISP.SYRIN IVP PRN (14:00)
[2022-05-17] MEDS ORDERED: METOCLOPRAMIDE HCL 10 MG/2 ML VIAL IVP PRN (14:00)
[2022-05-17] MEDS ORDERED: BUPIVACAINE LIPOSOME/PF 266 MG/20 ML VIAL INFIL ONE (14:02)
[2022-05-17 14:14] LABS: BACTERIA,URINE FEW /HPF (None Seen); MUCUS,URINE 1+ /LPF (None Seen); WBC,URINE 0-3 /HPF (0-3); YEAST,URINE Few /HPF (None Seen)
[2022-05-17] MEDS: HYDROmorphone 1 MG/ML INJ. CARTRIDGE IVP PRN ×2 (15:45→16:58)
--- NOTE | 2022-05-17 16:00 | NUR ---
Nutrition F/U Admitting Diagnosis R hip dislocation Reviewed Pertinent Medical/Surgical Hx Medical Record Medical History Comment: 82 YOM with PMH of DM2, advanced arthritis, hx knee replacement, hx hip replacement, morbid obesity, essential HTN. Traumatic fall with dislocation of the right hip arthroplasty, ALOC-etiology uncertain, rule out intracranial process, cellulitis of the L upper eyelid. SARS-CoV-2 Ag (Rapid) Positive 05/02, 05/04, 05/09; Negative 05/13 & COVID-19 ([facility]) Positive 05/07 Subjective Information: RD bedside visit deferred d/t high workload. Per EMR review, pt went to OR today for ORIF; negligible PO intake since last RD F/U 05/14; LBM x1 05/16; Ben scale: 14, skin intact per Diabetes Trainer note 05/15. Consider DM-friendly diet and ONS, as well as wound/Sx healing modular, Palmer BID upon diet advancement. Current Diet Order/Nutrition Support: NPO x0 days Patient/Significant Other Unable To Verbalize Education Provided Not Indicated Pertinent Medications: morphine, D5NS at 70 ml/hr (286 kcal/day), lantus, SSI, k-dur, colace Pertinent Labs: BG 191 H, POC BG 214 H, WBC 9 WNL, H/H 11.5 L/32.4 L, RBC 3.49 L, K 3.6 WNL Height (Feet) 6 feet Height (Inches) 2.00 inches Weight (Pounds) 306 pounds -- stable since 05/05 Patient Weight 138.799 kg Body Mass Index 39.28 kg/m2 %IBW 161 [place]/Adjusted Body Weight 190#/86.4 kg Recent Weight Change unable to assess Weight Status Obese Food Allergies Yes - peanut per EMR review Usual Diet At Home unknown per RN screening Current % PO Negligible Estimated Energy Expenditure (kcals/day) 7529-7724 (30-35 kcal/kg IBW, obesity, GERIAT pre-op needs) Estimated Protein Required (g/day) 130-156 (1.5-1.8 gm/kg IBW, obesity, GERIAT pre-op needs) NEW Estimated Fluid Required (l/day) 2.2-2.6 (25-30 ml/kg IBW d/t GERIAT maintenance) Problem/Etiology/Signs/Symptoms Increased nutritional needs R/T metabolic demands AEB estimated energy and protein needs for geriatric pre-op nutrition, +SARS-CoV-2. (Ongoing) Inadequate protein-energy intake R/T AMS, poor appetite AEB PO intake 49%. (Ongoing) Expected Outcomes/Goals - Monitor tolerance of nutrition support/intake w/ goal of pt meeting >75% of estimated needs, nutrition-related labs trending within acceptable range by DC, promote healing and skin integrity, BM q 1-3 days Dietitian Recommendations * Consider CCHO diet w/ Glucerna BID, Palmer BID to promote improved glycemic control, PO intakes, and wound/Sx healing * Wound care supplements s/p hip Sx: daily MVI, 250mg vit c, zincate 220mg x14 days Follow Up High Risk: F/U in 2-3 days
--- NOTE | 2022-05-17 16:10 | NUR ---
Dietitian Recommendations * Consider [facility] diet w/ Glucerna BID, Palmer BID to promote improved glycemic control, PO intakes, and wound/Sx healing * Wound care supplements s/p hip Sx: daily MVI, 250mg vit c, zincate 220mg x14 days LP, RD Please refer to Nutrition F/U for details.
[2022-05-17] MEDS ORDERED: HYDROmorphone 1 MG/ML INJ. CARTRIDGE IVP PRN (16:15)
[2022-05-17] MEDS ORDERED: HYDROcodone/ACETAMIN 5-325 MG TAB (NORCO/ VICODIN) PO PRN ×3 (16:45→17:15)
[2022-05-17] MEDS ORDERED: NALOXONE HCL 0.4 MG/ML AMP (NARCAN) IVP PRN ×2 (16:45)
[2022-05-17] MEDS ORDERED: HYDROmorphone 1 MG/ML INJ. CARTRIDGE ONE (16:46)
--- NOTE | 2022-05-17 17:10 | NUR ---
NURSE NOTE PT RETURNED FROM SX WITH SHAHBAZ BRUNNER. Addendum: 05/17/22 at 1837 by Mini Chaves RN Amended: Links added.
--- NOTE | 2022-05-17 17:10 | NUR ---
NURSE NOTE RETURNED FROM O.R RECEIVED REPORT FROM RN,SILVINA. RECEIVED PT WITH REDUCTION PILLOW ERVIN DRAINING BY GRAVITY. PT ON O2 3L/MIN NC.
[2022-05-17] MEDS ORDERED: MORPHINE 4 MG INJ. 4 MG/ML VIAL IVP PRN (17:15)
[2022-05-17] MEDS ORDERED: GENTAMICIN SULFATE 0.3% Non-Formulary OPHT. 5 ML DROPS OP SCH (17:15)
[2022-05-17] MEDS ORDERED: DOCUSATE SODIUM 100 MG CAPSULE PO PRN (17:15)
[2022-05-17] MEDS ORDERED: ZOLPIDEM TARTRATE 5 MG TABLET PO PRN (17:15)
[2022-05-17] MEDS ORDERED: MORPHINE 2 MG/ML INJ. SYRINGE IVP PRN (17:15)
[2022-05-17] MEDS ORDERED: ceFAZolin SODIUM 1 GM in D5W 50 ML IV SCH (17:15)
[2022-05-17] MEDS ORDERED: LORazepam 1 MG TABLET PO PRN (17:30)
[2022-05-17] MEDS: 0.45% NACL 1,000 ML IV SCH (17:56)
--- NOTE | 2022-05-17 19:25 | NUR ---
CLOSING NOTE PROVIDED SBAR TO DATA EXAMINATION CLERK RN PT IN BED, RESPIRATIONS EVEN, REGULAR, AND NON-LABORED ERVIN DRAINING BY GRAVITY. IV RUNNING ORDERED ENDORSED LAST POST-OP VITAL SIGNS AND FOLLOW UP WITH REGARDING MRSA NARES, AND FOLLOW UP WITH MINIMAL URINE OUTPUT. ENDORSED CARE
[2022-05-17] MEDS: HYDROmorphone 2 MG/ML VIAL IVP PRN (20:33)
[2022-05-17] MEDS: DOCUSATE SODIUM 100 MG CAPSULE PO SCH (21:00)
[2022-05-17] MEDS ORDERED: CEFAZOLIN 1 GM IVPB PREMIX 50 ML IV SCH (22:00)
[2022-05-17] MEDS: INSULIN REGULAR, HUMAN 100 UNITS/ML, 10 ML VIAL (humuLIN R) SUBCUT PRN (23:22)
[2022-05-18 01:29] VITALS: BP_SYST 129
[2022-05-18] MEDS: 0.45% NACL 1,000 ML IV SCH ×2 (05:07→18:01)
[2022-05-18] MEDS: HYDROmorphone 2 MG/ML VIAL IVP PRN ×2 (05:09→09:11)
[2022-05-18] MEDS: NEOMYCIN/POLYMYXN B/GRAMICIDIN 10 ML OPHT. DROPS OP SCH ×5 (06:57→23:25)
[2022-05-18 07:11] LABS: EOSINOPHILS # (AUTO) 0.2 K/uL (0.0-0.4); EOSINOPHILS % (AUTO) 1.3 % (0.0-4.0); HEMATOCRIT 32.5 % (36-54); HEMOGLOBIN 11.3 g/dL (14.0-18.0); LYMPHOCYTES # (AUTO) 0.6 K/uL (1.0-5.5); LYMPHOCYTES % (AUTO) 4.5 % (20.5-51.5); MEAN CORPUSCULAR HEMOGLOBIN 32 pg (27-31); MEAN CORPUSCULAR HGB CONC 35 % (32-36); MEAN CORPUSCULAR VOLUME 93 fL (79.0-98.0); MONOCYTES # (AUTO) 3.4 K/uL (0.0-1.0); MONOCYTES % (AUTO) 25.5 % (1.7-9.3); NEUTROPHILS # (AUTO) 9.2 K/uL (1.8-7.7); NEUTROPHILS % (AUTO) 68.7 % (40.0-70.0); PLATELET COUNT (AUTO) 296 K/uL (130-430); RED BLOOD CELL COUNT(AUTO) 3.48 MIL/uL (4.2-6.2); RED CELL DISTRIBUTION WIDTH 13.2 % (9.0-15.0); WHITE BLOOD COUNT (AUTO) 13.4 K/uL (4.8-10.8)
[2022-05-18 07:19] LABS: ANION GAP 4 (5-15); CALCIUM 7.8 mg/dL (8.4-11.0); CHLORIDE 105 mmol/L (98-107); CREATININE 1.18 mg/dL (0.55-1.30); GLUCOSE 142 mg/dL (70-99); SODIUM SERUM 138 mmol/L (136-145); UREA NITROGEN, BLOOD 13 mg/dL (8-21)
[2022-05-18] MEDS: cefTRIAXone 1 GM in D5W 50 ML IV SCH (09:08)
[2022-05-18] MEDS: DOCUSATE SODIUM 100 MG CAPSULE PO SCH ×2 (09:09→21:00)
[2022-05-18] MEDS: amLODIPine BESYLATE 5 MG TABLET PO SCH (09:09)
[2022-05-18] MEDS: ENOXAPARIN SODIUM 40 MG/0.4 ML SYRINGE SUBCUT SCH (09:10)
[2022-05-18] MEDS: ONDANSETRON HCL 4 MG/2 ML VIAL IVP PRN (09:10)
[2022-05-18] MEDS: TRIAMCINOLONE ACETONIDE 0.025% 15 GM CREAM.GM. TP SCH ×2 (09:12→21:00)
[2022-05-18 12:58] VITALS: BP_SYST 107
[2022-05-18 16:18] VITALS: BP_SYST 93
[2022-05-18] MEDS: INSULIN REGULAR, HUMAN 100 UNITS/ML, 10 ML VIAL (humuLIN R) SUBCUT PRN ×2 (17:51→23:33)
--- NOTE | 2022-05-18 19:45 | NUR ---
Received pt report from Day RN. Pt received in stable condition and in no apparent distress.
[2022-05-18 20:00] VITALS: BP_SYST 122
[2022-05-18] MEDS: INSULIN GLARGINE 100 UNITS/ML 10 ML VIAL SUBCUT SCH (21:00)
[2022-05-19 01:49] VITALS: BP_SYST 111
[2022-05-19] MEDS: NEOMYCIN/POLYMYXN B/GRAMICIDIN 10 ML OPHT. DROPS OP SCH ×5 (07:07→21:18)
[2022-05-19] MEDS: 0.45% NACL 1,000 ML IV SCH ×2 (07:07→17:44)
[2022-05-19] MEDS: HYDROmorphone 2 MG/ML VIAL IVP PRN ×2 (07:10→21:35)
[2022-05-19] MEDS: ONDANSETRON HCL 4 MG/2 ML VIAL IVP PRN (07:11)
[2022-05-19 08:00] VITALS: BP_SYST 118
[2022-05-19] MEDS: ENOXAPARIN SODIUM 40 MG/0.4 ML SYRINGE SUBCUT SCH (08:31)
[2022-05-19] MEDS: DOCUSATE SODIUM 100 MG CAPSULE PO SCH ×2 (08:31→21:17)
[2022-05-19] MEDS: amLODIPine BESYLATE 5 MG TABLET PO SCH (08:35)
[2022-05-19] MEDS: TRIAMCINOLONE ACETONIDE 0.025% 15 GM CREAM.GM. TP SCH ×2 (09:00→21:17)
[2022-05-19 12:00] VITALS: BP_SYST 115
[2022-05-19] MEDS: INSULIN REGULAR, HUMAN 100 UNITS/ML, 10 ML VIAL (humuLIN R) SUBCUT PRN ×2 (12:48→21:23)
[2022-05-19 16:00] VITALS: BP_SYST 117
[2022-05-19 21:00] VITALS: BP_SYST 125
[2022-05-19] MEDS: INSULIN GLARGINE 100 UNITS/ML 10 ML VIAL SUBCUT SCH (21:22)
--- NOTE | 2022-05-19 22:05 | NUR ---
PATIENT awake alert HOB elevated assist encourage position change , WEDGE in place comfort measures implemented call ansari given to patient / .
[2022-05-20 01:18] VITALS: BP_SYST 121
--- NOTE | 2022-05-20 02:15 | NUR ---
Hourly Rounding patient Resting , HOB elevated chest movement shallow also symmetrical is Responsive to light touch & verbal stimuli call unit with patient / .
--- NOTE | 2022-05-20 06:12 | NUR ---
BSG Blood Sugar Glucose @ 146 [address] skin Remains dry warm , no DIABETIC REACTION noted patient awake alert / .
[2022-05-20] MEDS: NEOMYCIN/POLYMYXN B/GRAMICIDIN 10 ML OPHT. DROPS OP SCH ×2 (06:45→10:00)
[2022-05-20] MEDS: 0.45% NACL 1,000 ML IV SCH (06:46)
[2022-05-20 08:00] VITALS: BP_SYST 134
[2022-05-20] MEDS: HYDROmorphone 2 MG/ML VIAL IVP PRN (08:06)
[2022-05-20] MEDS: TRIAMCINOLONE ACETONIDE 0.025% 15 GM CREAM.GM. TP SCH (09:00)
--- NOTE | 2022-05-20 09:20 | NUR ---
Discharge Planning: [facility] faxed pt referral to [facility] [phone], Austyn Lai [phone]. DCP to follow up. Addendum: 05/20/22 at 1156 by Kate Elizabeth DP DCP arranged transport with [facility] [phone] BLS bariatric 3:30pm to [facility] [phone] Rm [id number]. DCP made CM and nurse aware. Patient packet taken to nurse station. Addendum: 05/20/22 at 1355 by Kate Elizabeth DP Disposition 03
[2022-05-20] MEDS: amLODIPine BESYLATE 5 MG TABLET PO SCH (10:27)
[2022-05-20] MEDS: DOCUSATE SODIUM 100 MG CAPSULE PO SCH (10:28)
[2022-05-20] MEDS: ENOXAPARIN SODIUM 40 MG/0.4 ML SYRINGE SUBCUT SCH (10:28)
[2022-05-20 11:17] VITALS: BP_SYST 118
[2022-05-20] MEDS: INSULIN REGULAR, HUMAN 100 UNITS/ML, 10 ML VIAL (humuLIN R) SUBCUT PRN (11:43)
[2022-05-20] MEDS ORDERED: AMLO5TAB4 PO (11:53)
[2022-05-20] MEDS ORDERED: PERC10 PO (11:54)
[2022-05-20] MEDS ORDERED: LOVI40 SQ (11:54)
--- NOTE | 2022-05-20 12:51 | NUR ---
Spoke to patient's son, Pilo,[phone]. He agreed to DC to SNF for PT. Please notify him when patient is transferred to [facility]
[2022-05-20 14:37] VITALS: BP_SYST 118
--- NOTE | 2022-05-20 16:26 | NUR ---
REPORT CALLED TO HUSAM RN AT [facility] AT 1530. PT'S SON, ASH IS PRESENT AT PT'S BEDSIDE. AMBULANCE SERVICE PRESENT AT THIS TIME TO TRANSFER PT TO NURSING FACILITY. PT HAS DRESSING PRESENT TO RT HIP- DRY AND INTACT. NEUROVASCULAR CHECK TO RLE INTACT. PT SKIN APPEARS PALE- OVERALL. HOWEVER, H&H IS STABLE. RESPIRATIONS EVEN ET UNLABORED. VSS. PT IS ALERT AND TALKATIVE. APPEARS TO BE IN GOOD SPIRITS- HE WAS LAUGHING AND PT'S SON INQUIRED ABOUT A MOLDER OPERATOR'S LICENSE AND INSURANCE CARD THAT WAS LEFT WITH THE PRESENTATION TEAM MEMBER UPON BEING TRANSPORTED TO THE HOSPITAL. INFORMED HIM THAT I WOULD MAKE A NOTE OF IT. HE VERBALIZED UNDERSTANDING. ALL VALUABLES AND BELONGINGS PT WAS ADMITTED ON FLOOR WITH WAS SENT WITH PT.
--- NOTE | 2022-05-20 16:45 | NUR ---
OPENING NOTES 07:30- RECEIVED REPORT FROM DIRECTOR OF ENROLLMENT. PT IN BED. DOES NOT APPEAR TO BE IN DISTRESS. POC DUISCUSSED WITH PATIENT AND HE VERBALIZED UNDERSTANDING. 10:00- BETO RN ASSUMED CARE OF THE PATIENT
== END 2022-05-20 16:26 | DRG 466 ==
LOC: SED 13:53 → SMU 19:49
PROVIDERS: ADMIT Family Medicine; ATTEND Family Medicine
PROC: 4A10X4Z Monitoring of Central Nervous Electrical Activity, External Approach (ICD-10-PCS; principal; 2022-05-08)
PROC: 0SS9XZZ Reposition Right Hip Joint, External Approach (ICD-10-PCS; 2022-05-11)
PROC: 0SP90JZ Removal of Synthetic Substitute from Right Hip Joint, Open Approach (ICD-10-PCS; 2022-05-17)
PROC: 0SS90ZZ Reposition Right Hip Joint, Open Approach (ICD-10-PCS; 2022-05-17)
PROC: 0SR90JZ Replacement of Right Hip Joint with Synthetic Substitute, Open Approach (ICD-10-PCS; 2022-05-17)
DX: T84.020A Dislocation of internal right hip prosthesis, initial encounter (principal); G93.41 Metabolic encephalopathy; N17.0 Acute kidney failure with tubular necrosis; U07.1 COVID-19; L03.116 Cellulitis of left lower limb; L03.115 Cellulitis of right lower limb; E44.0 Moderate protein-calorie malnutrition; N39.0 Urinary tract infection, site not specified; E66.01 Morbid (severe) obesity due to excess calories; M19.90 Unspecified osteoarthritis, unspecified site; H00.034 Abscess of left upper eyelid; Y79.2 Prosthetic and other implants, materials and accessory orthopedic devices associated with adverse incidents; N40.0 Benign prostatic hyperplasia without lower urinary tract symptoms; Z96.652 Presence of left artificial knee joint; R09.02 Hypoxemia; E11.9 Type 2 diabetes mellitus without complications; G83.9 Paralytic syndrome, unspecified; I10 Essential (primary) hypertension; Z91.81 History of falling; Z68.39 Body mass index [BMI] 39.0-39.9, adult; Z91.010 Allergy to peanuts; Z79.899 Other long term (current) drug therapy; Z86.73 Personal history of transient ischemic attack (TIA), and cerebral infarction without residual deficits; Z79.84 Long term (current) use of oral hypoglycemic drugs; Z79.4 Long term (current) use of insulin; Y92.89 Other specified places as the place of occurrence of the external cause
CPT/HCPCS: 36415; 70450-TC; 71045; 73501; 73502; 76376; 76536-TC; 80048; 80053; 81000; 82550; 82948; 82962; 83036; 83735; 84302; 85007; 85025; 85027; 85610-TC; 85730-TC; 86886; 86900; 86901; 86920; 87070; 87070-TC; 87075-TC; 87081; 87086; 87101; 88302; 93005; 93306; 95816; 96372; 97110-GP; 97112-GP; 97530-GP; 99285; A2007; C9290; J0330; J0360; J0690; J0696; J1170; J1650; J1815; J2175; J2270; J2405; J2704; J3010; J3475; J3480; J3490; J7030; J7050; J7060; J7120; U0003

== ENCOUNTER 2022-11-22 11:33 | Inpatient (IN) | payer OTHER, MEDICARE ==
[~2022-11-22] VITALS: Ht 190.5 cm; Wt 121.6 kg
[~2022-11-22 11:33] MED LIST changes: +AMLO5TAB4 PO; +LOVI40 SQ; +PERC10 PO; -SULF1TAB48 PO
[2022-11-22 11:57] VITALS: BP_SYST 133
[2022-11-22] MEDS ORDERED: NACL 0.9% 1,000 ML IV ONE ×3 (12:30→17:30)
[2022-11-22 12:56] LABS: BASOPHILS % (AUTO) 0.2 % (0.0-2.0); EOSINOPHILS # (AUTO) 0.2 K/uL (0.0-0.4); EOSINOPHILS % (AUTO) 1.9 % (0.0-4.0); HEMATOCRIT 37.2 % (36-54); HEMOGLOBIN 12.3 g/dL (14.0-18.0); LYMPHOCYTES # (AUTO) 0.8 K/uL (1.0-5.5); MEAN CORPUSCULAR HEMOGLOBIN 31 pg (27-31); MEAN CORPUSCULAR HGB CONC 33 % (32-36); MEAN CORPUSCULAR VOLUME 95 fL (79.0-98.0); MONOCYTES # (AUTO) 0.7 K/uL (0.0-1.0); MONOCYTES % (AUTO) 8.2 % (1.7-9.3); NEUTROPHILS # (AUTO) 7.3 K/uL (1.8-7.7); NEUTROPHILS % (AUTO) 80.7 % (40.0-70.0); PLATELET COUNT (AUTO) 234 K/uL (130-430); RED BLOOD CELL COUNT(AUTO) 3.94 MIL/uL (4.2-6.2); RED CELL DISTRIBUTION WIDTH 14.9 % (9.0-15.0)
[2022-11-22 13:04] LABS: ANION GAP 11 (5-15); CALCIUM 9.2 mg/dL (8.4-11.0); CHLORIDE 109 mmol/L (98-107); CREATININE 1.36 mg/dL (0.55-1.30); GLUCOSE 158 mg/dL (70-99); UREA NITROGEN, BLOOD 23 mg/dL (8-21)
[2022-11-22 13:11] LABS: ALANINE AMINOTRANSFERASE 14 U/L (12-78); ALBUMIN 3.1 g/dL (3.4-4.8); ASPARTATE AMINOTRANSFERASE 12 U/L (10-37); LIPASE 53 U/L (73-393); PHOSPHORUS 3.4 mg/dL (2.7-4.5); TOTAL BILIRUBIN 0.5 mg/dL (0.0-1.0)
[2022-11-22] MEDS ORDERED: ONDANSETRON HCL 4 MG/2 ML VIAL IVP ONE (14:15)
[2022-11-22] MEDS ORDERED: GLUCOSE (DEXTROSE) ORAL GEL -Adults PO PRN (17:45)
[2022-11-22] MEDS ORDERED: D5W 1,000 ML IV PRN (17:45)
[2022-11-22] MEDS ORDERED: DEXTROSE 50% JECT 50 ML DISP.SYRIN IVP PRN (17:45)
[2022-11-23 00:44] VITALS: BP_SYST 161
[2022-11-23] MEDS ORDERED: cefTRIAXone 1 GM in D5W 50 ML IV SCH (04:00)
[2022-11-23] MEDS: cefTRIAXone 1 GM in D5W 50 ML IV SCH (09:57)
[2022-11-23 11:40] VITALS: BP_SYST 153
[2022-11-23 15:36] VITALS: BP_SYST 157
[2022-11-23 20:00] VITALS: BP_SYST 149
[2022-11-24 00:01] VITALS: BP_SYST 158
[2022-11-24 09:27] VITALS: BP_SYST 158
[2022-11-24] MEDS: cefTRIAXone 1 GM in D5W 50 ML IV SCH (10:05)
[2022-11-24 12:00] VITALS: BP_SYST 153
[2022-11-24 17:25] VITALS: BP_SYST 157
[2022-11-24 20:00] VITALS: BP_SYST 140
[2022-11-24] MEDS: MUPIROCIN 2% TOPICAL OINTMENT 22 GM NS SCH (20:38)
[2022-11-25 00:21] VITALS: BP_SYST 138
[2022-11-25] MEDS: cefTRIAXone 1 GM in D5W 50 ML IV SCH (08:59)
[2022-11-25] MEDS: MUPIROCIN 2% TOPICAL OINTMENT 22 GM NS SCH ×2 (08:59→21:20)
[2022-11-25 10:12] VITALS: BP_SYST 156
[2022-11-25 15:50] VITALS: BP_SYST 150
[2022-11-25 20:00] VITALS: BP_SYST 157
[2022-11-26 00:52] VITALS: BP_SYST 154
[2022-11-26 08:00] VITALS: BP_SYST 155
[2022-11-26] MEDS: MUPIROCIN 2% TOPICAL OINTMENT 22 GM NS SCH ×2 (09:00→20:30)
[2022-11-26] MEDS: cefTRIAXone 1 GM in D5W 50 ML IV SCH ×2 (09:00→10:56)
[2022-11-26] MEDS ORDERED: OXYCODONE/ACETAMINOPHEN *10*mg/325 mg TABLET PO PRN (14:00)
[2022-11-26] MEDS: INSULIN REGULAR, HUMAN 100 UNITS/ML, 3 ML VIAL (humuLIN R) SUBCUT PRN ×2 (15:49→20:20)
[2022-11-26 17:07] VITALS: BP_SYST 123
[2022-11-26] MEDS ORDERED: GLIMEPIRIDE 2 MG TABLET PO SCH (21:00)
[2022-11-27 01:40] VITALS: BP_SYST 158
[2022-11-27 04:55] VITALS: BP_SYST 155
[2022-11-27 06:34] LABS: BASOPHILS % (AUTO) 0.4 % (0.0-2.0); EOSINOPHILS # (AUTO) 0.2 K/uL (0.0-0.4); EOSINOPHILS % (AUTO) 3.3 % (0.0-4.0); HEMATOCRIT 34.4 % (36-54); HEMOGLOBIN 11.7 g/dL (14.0-18.0); LYMPHOCYTES # (AUTO) 1.1 K/uL (1.0-5.5); LYMPHOCYTES % (AUTO) 15.2 % (20.5-51.5); MEAN CORPUSCULAR HEMOGLOBIN 32 pg (27-31); MEAN CORPUSCULAR HGB CONC 34 % (32-36); MEAN CORPUSCULAR VOLUME 93 fL (79.0-98.0); MONOCYTES # (AUTO) 0.5 K/uL (0.0-1.0); MONOCYTES % (AUTO) 7.2 % (1.7-9.3); NEUTROPHILS # (AUTO) 5.4 K/uL (1.8-7.7); NEUTROPHILS % (AUTO) 73.9 % (40.0-70.0); PLATELET COUNT (AUTO) 212 K/uL (130-430); RED CELL DISTRIBUTION WIDTH 14.6 % (9.0-15.0); WHITE BLOOD COUNT (AUTO) 7.2 K/uL (4.8-10.8)
[2022-11-27 07:37] LABS: ANION GAP 6 (5-15); CALCIUM 8.5 mg/dL (8.4-11.0); CHLORIDE 107 mmol/L (98-107); CREATININE 1.17 mg/dL (0.55-1.30); GLUCOSE 121 mg/dL (70-99); PHOSPHORUS 3.2 mg/dL (2.7-4.5); UREA NITROGEN, BLOOD 17 mg/dL (8-21)
[2022-11-27 08:13] VITALS: BP_SYST 150
[2022-11-27] MEDS ORDERED: amLODIPine BESYLATE 5 MG TABLET PO SCH (09:00)
[2022-11-27] MEDS ORDERED: MULTIVITS,CA,MINERALS/IRON/FA 1 TABLET PO SCH (09:00)
[2022-11-27] MEDS ORDERED: GABAPENTIN 100 MG CAPSULE PO SCH (09:00)
[2022-11-27] MEDS: MUPIROCIN 2% TOPICAL OINTMENT 22 GM NS SCH (09:20)
[2022-11-27] MEDS ORDERED: MUPIROCIN 1 GM OIN.PF.APP NS SCH (10:00)
[2022-11-27] MEDS: INSULIN REGULAR, HUMAN 100 UNITS/ML, 3 ML VIAL (humuLIN R) SUBCUT PRN (11:34)
[2022-11-27 12:34] VITALS: BP_SYST 152
[2022-11-27 16:24] VITALS: BP_SYST 144
[2022-11-27 16:54] VITALS: BP_SYST 149
[2022-11-27] MEDS ORDERED: MUPIROCIN 2% TOPICAL OINTMENT 22 GM NS SCH (21:00)
[2022-11-27 21:20] LABS: URINE SODIUM, RANDOM 93 mmol/L (40-220)
[2022-11-28] MEDS ORDERED: ENOXAPARIN SODIUM 40 MG/0.4 ML SYRINGE SQ SCH (09:00)
[2022-11-28 11:07] LABS: CREATININE, URINE 108.9 mg/dL (Not Estab.); MICROALBUMIN URINE RANDOM 31.1 ug/mL (Not Estab.)
== END 2022-11-27 17:05 | disposition home or self-care (01) | DRG 871 ==
LOC: SED 11:33 → STU 16:54 → SMU 11-23 12:01
PROVIDERS: ADMIT Internal Medicine; ATTEND Internal Medicine
DX: A41.9 Sepsis, unspecified organism (principal); N17.0 Acute kidney failure with tubular necrosis; K80.10 Calculus of gallbladder with chronic cholecystitis without obstruction; E46 Unspecified protein-calorie malnutrition; A09 Infectious gastroenteritis and colitis, unspecified; E86.0 Dehydration; E11.22 Type 2 diabetes mellitus with diabetic chronic kidney disease; E11.40 Type 2 diabetes mellitus with diabetic neuropathy, unspecified; I12.9 Hypertensive chronic kidney disease with stage 1 through stage 4 chronic kidney disease, or unspecified chronic kidney disease; I25.10 Atherosclerotic heart disease of native coronary artery without angina pectoris; Z68.33 Body mass index [BMI] 33.0-33.9, adult; Z20.822 Contact with and (suspected) exposure to COVID-19; N18.9 Chronic kidney disease, unspecified; N28.1 Cyst of kidney, acquired; Z91.010 Allergy to peanuts; Z96.643 Presence of artificial hip joint, bilateral; Z90.49 Acquired absence of other specified parts of digestive tract
CPT/HCPCS: 36415; 76376; 76705; 78226; 80048; 80053; 82043; 82272; 82570; 83605; 83690; 83735; 84100; 84302; 84484; 85025; 87040; 87045-TC; 87046; 87081; 87230-TC; 89055; 93005; 96360; 99285; A9537; G0378; J0696; J1815; J7060

== ENCOUNTER 2023-06-18 17:26 | Emergency (ER) | payer OTHER, MEDICARE ==
[~2023-06-18] VITALS: Ht 182.9 cm; Wt 113.4 kg
[2023-06-18] MEDS ORDERED: NS 1000 ML IV.SOLN IV ONE (17:30)
[2023-06-18 19:13] LABS: INFLUENZA TYPE A negative (NEGATIVE); INFLUENZA TYPE B NEGATIVE (NEGATIVE)
[2023-06-18 19:20] VITALS: BP_SYST 24; PULSE 90; RESP 16; TEMP 98.2; O2SAT 98
[2023-06-18 20:43] LABS: BASOPHILS % (AUTO) 0.2 % (0.0-2.0); EOSINOPHILS # (AUTO) 0.5 K/uL (0.0-0.4); EOSINOPHILS % (AUTO) 6.5 % (0.0-4.0); HEMATOCRIT 39.9 % (36-54); LYMPHOCYTES # (AUTO) 0.7 K/uL (1.0-5.5); LYMPHOCYTES % (AUTO) 8.5 % (20.5-51.5); MEAN CORPUSCULAR HEMOGLOBIN 32 pg (27-31); MEAN CORPUSCULAR HGB CONC 33 % (32-36); MEAN CORPUSCULAR VOLUME 97 fL (79.0-98.0); MONOCYTES # (AUTO) 0.6 K/uL (0.0-1.0); MONOCYTES % (AUTO) 7.2 % (1.7-9.3); NEUTROPHILS # (AUTO) 6.1 K/uL (1.8-7.7); NEUTROPHILS % (AUTO) 77.6 % (40.0-70.0); PLATELET COUNT (AUTO) 199 K/uL (130-430); RED BLOOD CELL COUNT(AUTO) 4.11 MIL/uL (4.2-6.2); RED CELL DISTRIBUTION WIDTH 13.7 % (9.0-15.0); WHITE BLOOD COUNT (AUTO) 7.9 K/uL (4.8-10.8)
[2023-06-18 20:59] LABS: ANION GAP 5 (5-15); CALCIUM 8.7 mg/dL (8.4-11.0); CARBON DIOXIDE 26 mmol/L (23-29); CHLORIDE 104 mmol/L (98-107); CREATININE 1.62 mg/dL (0.55-1.30); GLUCOSE 127 mg/dL (74-106); INR 1.2 (0.80-1.20); POTASSIUM 3.8 mmol/L (3.5-5.1); PROTHROMBIN TIME 11.9 SECS (9.5-12.5); SODIUM SERUM 135 mmol/L (136-145); UREA NITROGEN, BLOOD 26 mg/dL (8-21)
[2023-06-18 21:03] LABS: ALANINE AMINOTRANSFERASE 13 U/L (12-78); ALBUMIN 3.3 g/dL (3.4-4.8); ASPARTATE AMINOTRANSFERASE 13 U/L (10-37); TOTAL BILIRUBIN 0.8 mg/dL (0.0-1.0); TOTAL PROTEIN, SERUM 7.4 g/dL (6.4-8.3)
[2023-06-18] MEDS ORDERED: ONDA-8 TL (21:30)
[2023-06-18] MEDS ORDERED: LOM2.5 PO (21:30)
[2023-06-18 22:44] VITALS: BP_SYST 164; PULSE 74; RESP 18; O2SAT 98
== END 2023-06-18 22:30 | disposition home or self-care (01) ==
LOC: SED 17:26
DX: R19.7 Diarrhea, unspecified (principal); R11.10 Vomiting, unspecified; E86.0 Dehydration; R53.1 Weakness; E11.9 Type 2 diabetes mellitus without complications; Z91.010 Allergy to peanuts; Z79.899 Other long term (current) drug therapy; Z20.822 Contact with and (suspected) exposure to COVID-19
CPT/HCPCS: 99285; 96360; 87426; 80053; 85025; 85610; 85730; 87040; 36415; 93005; 83605; 87804 ×2; J7030

== ENCOUNTER 2023-06-23 10:28 | Inpatient (IN) | payer OTHER, MEDICARE ==
[~2023-06-23] VITALS: Ht 190.5 cm; Wt 123.8 kg
[~2023-06-23 10:28] MED LIST changes: +LOM2.5 PO; +ONDA-8 TL
[2023-06-23 10:37] VITALS: BP_SYST 100; PULSE 100; RESP 18; TEMP 98.3; O2SAT 98
[2023-06-23 11:54] LABS: BASOPHILS % (AUTO) 0.3 % (0.0-2.0); EOSINOPHILS # (AUTO) 0.2 K/uL (0.0-0.4); EOSINOPHILS % (AUTO) 2.6 % (0.0-4.0); HEMATOCRIT 41.4 % (36-54); HEMOGLOBIN 13.3 g/dL (14.0-18.0); LYMPHOCYTES # (AUTO) 0.9 K/uL (1.0-5.5); MEAN CORPUSCULAR HEMOGLOBIN 31 pg (27-31); MEAN CORPUSCULAR HGB CONC 32 % (32-36); MEAN CORPUSCULAR VOLUME 98 fL (79.0-98.0); MONOCYTES # (AUTO) 0.7 K/uL (0.0-1.0); MONOCYTES % (AUTO) 8.3 % (1.7-9.3); NEUTROPHILS # (AUTO) 6.8 K/uL (1.8-7.7); NEUTROPHILS % (AUTO) 78.8 % (40.0-70.0); PLATELET COUNT (AUTO) 160 K/uL (130-430); RED BLOOD CELL COUNT(AUTO) 4.24 MIL/uL (4.2-6.2); RED CELL DISTRIBUTION WIDTH 14.1 % (9.0-15.0); WHITE BLOOD COUNT (AUTO) 8.6 K/uL (4.8-10.8)
[2023-06-23 12:03] LABS: ANION GAP 11 (5-15); CALCIUM 8.7 mg/dL (8.4-11.0); CARBON DIOXIDE 22 mmol/L (23-29); CHLORIDE 107 mmol/L (98-107); CREATININE 2.22 mg/dL (0.55-1.30); GLUCOSE 154 mg/dL (74-106); POTASSIUM 4.1 mmol/L (3.5-5.1); SODIUM SERUM 140 mmol/L (136-145); UREA NITROGEN, BLOOD 30 mg/dL (8-21)
[2023-06-23 12:08] LABS: ALBUMIN 3.2 g/dL (3.4-4.8); ASPARTATE AMINOTRANSFERASE 14 U/L (10-37); LIPASE 66 U/L (73-393); TOTAL BILIRUBIN 0.6 mg/dL (0.0-1.0); TOTAL PROTEIN, SERUM 7.4 g/dL (6.4-8.3)
[2023-06-23 12:17] LABS: ALANINE AMINOTRANSFERASE 8 U/L (12-78)
[2023-06-23] MEDS ORDERED: PIPERACILLIN/TAZO 3.375 GM in NS 50 ML IV ONE (14:15)
[2023-06-23] MEDS ORDERED: PIPERACILLIN/TAZOBACTAM 3.375 GM/VIAL (ZOSYN) IV ONE (14:56)
[2023-06-23] MEDS ORDERED: INSULIN LISPRO SLIDING SCALE 100 UNITS/ML, 3 ML VIAL (humaLOG) SUBCUT PRN (16:00)
[2023-06-23] MEDS ORDERED: ZOLPIDEM TARTRATE 5 MG TABLET PO PRN (16:00)
[2023-06-23] MEDS ORDERED: ACETAMINOPHEN 325 MG TABLET PO PRN ×2 (16:00→16:15)
[2023-06-23] MEDS ORDERED: NALOXONE HCL 0.4 MG/ML AMP (NARCAN) IVP PRN ×2 (16:00)
[2023-06-23] MEDS: NACL 0.9% 1,000 ML IV SCH (16:00)
[2023-06-23] MEDS ORDERED: POTASSIUM CHLORIDE 20 MEQ TAB.PRT.SR PO PRN (16:00)
[2023-06-23] MEDS ORDERED: DOCUSATE SODIUM 100 MG CAPSULE PO PRN (16:00)
[2023-06-23] MEDS ORDERED: LORazepam 2 MG/ML VIAL IVP PRN (16:00)
[2023-06-23] MEDS ORDERED: ONDANSETRON HCL 4 MG/2 ML VIAL IVP PRN (16:00)
[2023-06-23] MEDS ORDERED: MAGNESIUM SULFATE 50 ML IV PRN (16:00)
[2023-06-23] MEDS ORDERED: MUPIROCIN 2% TOPICAL OINTMENT 22 GM NS PRN (16:00)
[2023-06-23] MEDS ORDERED: DEXTROSE 50% JECT 50 ML DISP.SYRIN IVP PRN (16:00)
[2023-06-23] MEDS ORDERED: MORPHINE 2 MG/ML INJ. SYRINGE IVP PRN ×2 (16:00)
[2023-06-23] MEDS ORDERED: VANCOMYCIN HCL 1,250 MG in NS 250 ML IV SCH (17:00)
[2023-06-23 20:08] VITALS: BP_SYST 146; PULSE 76; RESP 18; TEMP 98.1
[2023-06-23] MEDS: HEPARIN SODIUM,PORCINE 5,000 UNITS/ML VIAL SUBCUT SCH (21:00)
[2023-06-23] MEDS ORDERED: cefTRIAXone 1 GM in D5W 50 ML IV SCH (21:00)
[2023-06-23] MEDS: metroNIDAZOLE 500 mg/NS 100 ML IV SCH (23:37)
[2023-06-24 00:11] VITALS: BP_SYST 158; PULSE 70; RESP 16; TEMP 97.5; O2SAT 96
[2023-06-24 04:45] LABS: BASOPHILS % (AUTO) 0.3 % (0.0-2.0); EOSINOPHILS # (AUTO) 0.3 K/uL (0.0-0.4); EOSINOPHILS % (AUTO) 3.3 % (0.0-4.0); HEMATOCRIT 34.9 % (36-54); HEMOGLOBIN 11.5 g/dL (14.0-18.0); LYMPHOCYTES # (AUTO) 0.9 K/uL (1.0-5.5); LYMPHOCYTES % (AUTO) 11.6 % (20.5-51.5); MEAN CORPUSCULAR HEMOGLOBIN 32 pg (27-31); MEAN CORPUSCULAR HGB CONC 33 % (32-36); MEAN CORPUSCULAR VOLUME 96 fL (79.0-98.0); MONOCYTES # (AUTO) 0.7 K/uL (0.0-1.0); MONOCYTES % (AUTO) 8.4 % (1.7-9.3); NEUTROPHILS # (AUTO) 6.1 K/uL (1.8-7.7); NEUTROPHILS % (AUTO) 76.4 % (40.0-70.0); PLATELET COUNT (AUTO) 156 K/uL (130-430); RED BLOOD CELL COUNT(AUTO) 3.64 MIL/uL (4.2-6.2); RED CELL DISTRIBUTION WIDTH 13.6 % (9.0-15.0)
[2023-06-24 05:01] LABS: ANION GAP 13 (5-15); CALCIUM 8.1 mg/dL (8.4-11.0); CARBON DIOXIDE 20 mmol/L (23-29); CHLORIDE 107 mmol/L (98-107); CREATININE 1.71 mg/dL (0.55-1.30); GLUCOSE 120 mg/dL (74-106); POTASSIUM 3.7 mmol/L (3.5-5.1); SODIUM SERUM 140 mmol/L (136-145); UREA NITROGEN, BLOOD 24 mg/dL (8-21)
[2023-06-24] MEDS: metroNIDAZOLE 500 mg/NS 100 ML IV SCH (06:12)
[2023-06-24 08:00] VITALS: BP_SYST 147; PULSE 73; RESP 16; TEMP 98.1; O2SAT 98
[2023-06-24] MEDS ORDERED: PIPERACILLIN/TAZO 2.25G/DEX-IS 50 ML IV SCH (08:15)
[2023-06-24] MEDS: GABAPENTIN 100 MG CAPSULE PO SCH ×2 (08:42→09:49)
[2023-06-24] MEDS: HEPARIN SODIUM,PORCINE 5,000 UNITS/ML VIAL SUBCUT SCH ×3 (08:44→21:10)
[2023-06-24 09:50] LABS: INR 1.2 (0.80-1.20)
[2023-06-24] MEDS: NACL 0.9% 1,000 ML IV SCH ×3 (10:00→23:15)
[2023-06-24] MEDS: cefTRIAXone 1 GM in D5W 50 ML IV SCH (10:25)
[2023-06-24 16:26] VITALS: BP_SYST 138; PULSE 61; RESP 18; TEMP 97.3; O2SAT 99
[2023-06-24 20:45] VITALS: BP_SYST 158; PULSE 64; RESP 20; TEMP 96.2; O2SAT 98
[2023-06-24 21:30] VITALS: O2SAT 98
[2023-06-25 01:40] VITALS: BP_SYST 144; PULSE 69; RESP 18; TEMP 97.6; O2SAT 99
[2023-06-25 05:38] LABS: BILIRUBIN,URINE NEGATIVE (NEGATIVE); BLOOD, URINE NEGATIVE (NEGATIVE); COLOR,URINE YELLOW (YELLOW); GLUCOSE,URINE NEGATIVE (NEGATIVE); KETONES,URINE NEGATIVE (NEGATIVE); NITRITE, URINE NEGATIVE (NEGATIVE); PH,URINE 5.5 (5.0-8.0); PROTEIN URINE 1+ (NEGATIVE); UROBILINOGEN,URINE 0.2 (0.2-1.0)
[2023-06-25 06:13] LABS: CLARITY/URINE SLIGHTLY CLOUDY (CLEAR)
[2023-06-25 06:14] LABS: LEUKOCYTE ESTERASE ,URINE TRACE (NEGATIVE)
[2023-06-25 06:15] LABS: BACTERIA,URINE FEW /HPF (None Seen); RBC,URINE 0-3 /HPF (0-3)
[2023-06-25 06:28] LABS: ANION GAP 12 (5-15); CARBON DIOXIDE 21 mmol/L (23-29); CHLORIDE 111 mmol/L (98-107); CREATININE 1.52 mg/dL (0.55-1.30); GLUCOSE 136 mg/dL (74-106); PHOSPHORUS 3.4 mg/dL (2.7-4.5); SODIUM SERUM 144 mmol/L (136-145); UREA NITROGEN, BLOOD 20 mg/dL (8-21)
[2023-06-25 07:00] VITALS: O2SAT 97
[2023-06-25 07:31] LABS: BASOPHILS % (AUTO) 0.7 % (0.0-2.0); EOSINOPHILS # (AUTO) 0.3 K/uL (0.0-0.4); EOSINOPHILS % (AUTO) 5.2 % (0.0-4.0); HEMATOCRIT 34.6 % (36-54); HEMOGLOBIN 11.3 g/dL (14.0-18.0); LYMPHOCYTES % (AUTO) 18.5 % (20.5-51.5); MEAN CORPUSCULAR HEMOGLOBIN 32 pg (27-31); MEAN CORPUSCULAR HGB CONC 33 % (32-36); MEAN CORPUSCULAR VOLUME 97 fL (79.0-98.0); MONOCYTES # (AUTO) 0.5 K/uL (0.0-1.0); MONOCYTES % (AUTO) 8.4 % (1.7-9.3); NEUTROPHILS # (AUTO) 3.8 K/uL (1.8-7.7); NEUTROPHILS % (AUTO) 67.2 % (40.0-70.0); PLATELET COUNT (AUTO) 151 K/uL (130-430); RED BLOOD CELL COUNT(AUTO) 3.57 MIL/uL (4.2-6.2); RED CELL DISTRIBUTION WIDTH 13.8 % (9.0-15.0); WHITE BLOOD COUNT (AUTO) 5.6 K/uL (4.8-10.8)
[2023-06-25 08:00] VITALS: BP_SYST 148; PULSE 61; RESP 18; TEMP 97.7; O2SAT 97
[2023-06-25] MEDS: HEPARIN SODIUM,PORCINE 5,000 UNITS/ML VIAL SUBCUT SCH (09:12)
[2023-06-25] MEDS: cefTRIAXone 1 GM in D5W 50 ML IV SCH (09:14)
[2023-06-25] MEDS: GABAPENTIN 100 MG CAPSULE PO SCH (09:15)
[2023-06-25 12:00] VITALS: BP_SYST 151; PULSE 61; RESP 20; TEMP 97.5; O2SAT 99
[2023-06-25 12:31] VITALS: BP_SYST 146; PULSE 66; RESP 18; TEMP 97.3; O2SAT 96
[2023-06-25 14:22] LABS: URINE SODIUM, RANDOM 149 mmol/L (40-220)
[2023-06-26 13:07] LABS: MICROALBUMIN URINE RANDOM 25.4 ug/mL (Not Estab.)
[2023-06-26] MEDS ORDERED: FIDA200T PO (17:47)
== END 2023-06-25 13:40 | disposition home or self-care (01) | DRG 371 ==
LOC: SED 10:28 → SMU 15:03
PROVIDERS: ADMIT General Practice; ATTEND General Practice
DX: A04.72 Enterocolitis due to Clostridium difficile, not specified as recurrent (principal); N17.0 Acute kidney failure with tubular necrosis; L02.31 Cutaneous abscess of buttock; A08.4 Viral intestinal infection, unspecified; E11.65 Type 2 diabetes mellitus with hyperglycemia; M16.0 Bilateral primary osteoarthritis of hip; Z96.641 Presence of right artificial hip joint; I12.9 Hypertensive chronic kidney disease with stage 1 through stage 4 chronic kidney disease, or unspecified chronic kidney disease; E11.22 Type 2 diabetes mellitus with diabetic chronic kidney disease; N18.9 Chronic kidney disease, unspecified; E11.40 Type 2 diabetes mellitus with diabetic neuropathy, unspecified; Z91.010 Allergy to peanuts; Z88.1 Allergy status to other antibiotic agents; K57.90 Diverticulosis of intestine, part unspecified, without perforation or abscess without bleeding
CPT/HCPCS: 36415; 70450-TC; 71045; 76376; 80048; 80053; 81000; 82043; 82570; 82962; 83037; 83690; 83735; 83880; 84100; 84302; 84484; 85025; 85610-TC; 85730-TC; 87045-TC; 87046; 87086; 87230-TC; 89055; 93005; 96365; 96367; 97116-GP; 99285; J0696; J1644; J2543; J3370; J3490; J7050; J7060